=== PATIENT | female | born 1955 | race Caucasian/White ===

== ENCOUNTER 2016-06-16 10:57 | Outpatient (RCR) | payer MEDICARE, MEDICAID ==
[~2016-06-16 10:57] MED LIST: ALBU0.632; ALLP300T; ASPI-586 PO; CARV6.252; ENAL10TA; EZET10TA5; FENO145T2; HCTZ12.5T; IBUP-1779 PO; LANS30CA; NIA500ERT PO; PRAV40TA; SIMV20TA3 PO; SRTR100T; TELM80TA3; TRM50T PO
== END 2016-06-16 11:47 | disposition home or self-care (01) ==
LOC: EDSEX
PROVIDERS: ATTEND Nurse Practitioner Community Health
DX: M51.36 Other intervertebral disc degeneration, lumbar region (principal)

== ENCOUNTER 2016-06-18 10:16 | Outpatient (CLI) | payer MEDICARE, MEDICAID ==
[~2016-06-18] VITALS: Ht 167.6 cm; Wt 133.4 kg
[2016-06-18] MEDS ORDERED: TRIAMCINOLONE ACET (KENALOG-40) 40 MG/ML 1 ML VIAL ONE (10:25)
[2016-06-18] MEDS ORDERED: BUPIVACAINE 0.25% 30 ML (SENSORCAINE) VIAL ONE (10:25)
[2016-06-18 10:37] VITALS: BP 189/90
[2016-06-18 11:29] VITALS: BP 188/99
--- NOTE | 2016-06-18 12:21 | Pain Medicine-Procedure ---
Procedure Pre-Op/Post-Op Diagnosis Diagnosis: Disc disorder with radiculopathy, lumbar Indications for Operation Low back pain Attending Surgeon Urbano Procedure Date of Service: Jun 18, 2016 Procedure: Lumbar Epidural Steroid Injection at the L5-S1 level under Fluoroscopic Guidance Procedure: Patient was identified in the holding area. After risks, benefits, and alternatives were discussed with the patient, informed consent was obtained. Patient was brought to the fluoroscopy suite and placed prone on the procedure room table. A time out was performed. Vital signs were monitored throughout the procedure. The patients low back was prepped and draped in the usual sterile fashion. The patients skin was anesthetized using 2% Lidocaine. A Tuohy needle was inserted and advanced to the L5-S1 epidural space under fluoroscopic guidance using the loss of resistance technique and intermittent projection of fluoroscopy. There was no paresthesia with needle placement. The needle position was confirmed in both the AP and lateral view. After negative aspiration 2ml of contrast was injected under live fluoroscopy which showed good spread of the contrast in the epidural space at the appropriate level, there was no intravascular or subarachnoid spread. Again, after negative aspiration for heme or CSF, 2 ml of 0.25% Bupivicaine, 2ml of preservative free normal saline, and 80mg of Kenalog was injected. The needle was removed and a sterile bandage was placed and the patient was transferred to the recovery area in stable condition. After a brief period of observation, patient was discharged to home with no new neurological deficits and no apparent complications. Complications None SAMINA DE LA CRUZ MD Jun 18, 2016 12:21 pm
== END 2016-06-18 11:35 | disposition home or self-care (01) ==
LOC: CARD 10:16 → EDSEX 10:16 → CARD 11:35
PROVIDERS: ATTEND Pain Medicine Pain Medicine
DX: M51.16 Intervertebral disc disorders with radiculopathy, lumbar region (principal); M47.816 Spondylosis without myelopathy or radiculopathy, lumbar region; E66.9 Obesity, unspecified; Z68.42 Body mass index [BMI] 45.0-49.9, adult; Z79.899 Other long term (current) drug therapy; Z79.84 Long term (current) use of oral hypoglycemic drugs
CPT/HCPCS: 62323; 82962

== ENCOUNTER 2016-07-09 11:46 | Outpatient (CLI) | payer MEDICARE, MEDICAID ==
[~2016-07-09] VITALS: Ht 167.6 cm; Wt 133.4 kg
[2016-07-09] MEDS ORDERED: TRIAMCINOLONE ACET (KENALOG-40) 40 MG/ML 1 ML VIAL ONE (12:01)
[2016-07-09] MEDS ORDERED: BUPIVACAINE 0.25% 30 ML (SENSORCAINE) VIAL ONE (12:01)
[2016-07-09 12:15] VITALS: BP 197/99
[2016-07-09 12:56] VITALS: BP 168/91
--- NOTE | 2016-07-09 14:15 | Pain Medicine-Procedure ---
Procedure Pre-Op/Post-Op Diagnosis Diagnosis: Disc disorder with radiculopathy, lumbar Indications for Operation Low back pain Attending Surgeon Urbano Procedure Date of Service: Jul 09, 2016 Procedure: Lumbar Epidural Steroid Injection at the L5-S1 level under Fluoroscopic Guidance Procedure: Patient was identified in the holding area. After risks, benefits, and alternatives were discussed with the patient, informed consent was obtained. Patient was brought to the fluoroscopy suite and placed prone on the procedure room table. A time out was performed. Vital signs were monitored throughout the procedure. The patients low back was prepped and draped in the usual sterile fashion. The patients skin was anesthetized using 2% Lidocaine. A Tuohy needle was inserted and advanced to the L5-S1 epidural space under fluoroscopic guidance using the loss of resistance technique and intermittent projection of fluoroscopy. There was no paresthesia with needle placement. The needle position was confirmed in both the AP and lateral view. After negative aspiration 2ml of contrast was injected under live fluoroscopy which showed good spread of the contrast in the epidural space at the appropriate level, there was no intravascular or subarachnoid spread. Again, after negative aspiration for heme or CSF, 2 ml of 0.25% Bupivicaine, 2ml of preservative free normal saline, and 80mg of Kenalog was injected. The needle was removed and a sterile bandage was placed and the patient was transferred to the recovery area in stable condition. After a brief period of observation, patient was discharged to home with no new neurological deficits and no apparent complications. Complications None SAMINA DE LA CRUZ MD Jul 09, 2016 2:15 pm
== END 2016-07-09 12:57 | disposition home or self-care (01) ==
LOC: CARD 11:46
PROVIDERS: ATTEND Pain Medicine Pain Medicine
DX: M51.16 Intervertebral disc disorders with radiculopathy, lumbar region (principal); M47.816 Spondylosis without myelopathy or radiculopathy, lumbar region; Z79.899 Other long term (current) drug therapy
CPT/HCPCS: 62323; 82962

== ENCOUNTER 2017-07-07 09:49 | Outpatient (RCR) | payer MEDICARE, MEDICAID | END 2017-07-07 10:36 | disposition home or self-care (01) | PROVIDERS: ATTEND Nurse Practitioner Community Health | DX: M54.5 Low back pain (principal) ==

== ENCOUNTER → 2018-06-28 | Outpatient (CLI) | payer MEDICARE, MEDICAID ==
--- NOTE | 2018-06-28 11:57 | Diagnostic Imaging Report ---
INDICATION: Chronic low back pain. TIME OF EXAM: 11:08 a.m. FINDINGS: AP and lateral views of the lumbar spine were obtained. Curvature is normal. There is grade I/II spondylolisthesis of L5 on S1. There appear to be pars defects at this level. Vertebral body heights are maintained. No acute compression fracture is identified. There is multilevel lumbar spondylosis with variable disc space narrowing and marginal spurring. This is most severe at the L5-S1 level where there is significant disc space narrowing present. IMPRESSION: Spondylolisthesis as well as spondylolysis at L5-S1 with severe degenerative disc disease. No acute bony abnormality is detected. Dictated by: Dictated on workstation # [id number]
== END ==
LOC: RAD 10:58
PROVIDERS: ATTEND Nurse Practitioner Community Health
DX: M43.07 Spondylolysis, lumbosacral region (principal); M51.36 Other intervertebral disc degeneration, lumbar region
CPT/HCPCS: 72100

== ENCOUNTER → 2018-06-29 | Outpatient (CLI) | payer MEDICARE, MEDICAID ==
--- NOTE | 2018-06-29 13:43 | Diagnostic Imaging Report ---
PROCEDURE: MRI lumbar spine. TECHNIQUE: Multiplanar, multisequence MRI of the lumbar spine was performed without contrast. INDICATION: Back pain. COMPARISON: Comparison made with prior examination from 11/09/2013. FINDINGS: There is bilateral spondylolysis at L5 with grade 2 spondylolisthesis of L5 on S1. The alignment is otherwise normal. There is no spondylolysis or spondylolisthesis. No other fractures are identified. Conus medullaris is seen at L1 and is normal in appearance. At T12-L1, there is some broad-based annular bulging and mild facet disease. There is slight effacement of the ventral thecal sac. At L1-2, there is loss of disc height and signal intensity. There is some annular bulging and facet disease. There is mild central spinal stenosis. At L2-3, the disc is normal in height, signal intensity, and morphology. There is some facet disease and thickening of the ligamentum flavum. This contributes to some minimal bilateral neural foraminal encroachment. At L4-5, there is minimal annular bulging as well as some facet disease and thickening of the ligamentum flavum. There is mild central spinal stenosis with slight encroachment upon the lateral recess bilaterally and zxlh-or-sbqpimhs bilateral neural foraminal encroachment. At L4-5, there is minimal annular bulging and facet disease. There is slight effacement of the ventral thecal sac and minimal neural foraminal encroachment. At L5-S1, there broad-based annular bulging with encroachment upon the lateral recess bilaterally. There is moderately severe bilateral neural foraminal encroachment, left greater than right. The abdominal aorta is nonaneurysmal. The visualized kidneys are unremarkable. IMPRESSION: Lumbar spondylosis and degenerative disc disease as detailed above. Dictated by: Dictated on workstation # [id number]
== END ==
LOC: RAD 11:59
PROVIDERS: ATTEND Nurse Practitioner Community Health
DX: M48.07 Spinal stenosis, lumbosacral region (principal); M51.27 Other intervertebral disc displacement, lumbosacral region; M47.816 Spondylosis without myelopathy or radiculopathy, lumbar region; M51.36 Other intervertebral disc degeneration, lumbar region; M43.17 Spondylolisthesis, lumbosacral region
CPT/HCPCS: 72148

== ENCOUNTER 2018-10-18 15:00 | Outpatient (CLI) | payer MEDICARE, MEDICAID ==
[~2018-10-18] VITALS: Ht 167.6 cm; Wt 141.1 kg
[2018-10-18] MEDS ORDERED: SIMV40TA4 PO (15:30)
[2018-10-18] MEDS ORDERED: HYDR12.56 PO (15:30)
[2018-10-18] MEDS ORDERED: SERT100T8 PO (15:30)
[2018-10-18] MEDS ORDERED: DIVA-76 PO (15:30)
[2018-10-18] MEDS ORDERED: ALLO300T2 PO (15:30)
[2018-10-18] MEDS ORDERED: IBUP-1780 PO (15:30)
[2018-10-18] MEDS ORDERED: EXEN2PEN SQ (15:30)
[2018-10-18] MEDS ORDERED: RT-ALBUINH IH (15:30)
[2018-10-18] MEDS ORDERED: METF-397 PO (15:30)
[2018-10-18] MEDS ORDERED: RANI150T90 PO (15:30)
[2018-10-18] MEDS ORDERED: CARV12.53 PO (15:30)
[2018-10-18] MEDS ORDERED: PREG225C PO (15:30)
[2018-10-18] MEDS ORDERED: PRAZ1CAP2 PO (15:30)
[2018-10-18] MEDS ORDERED: TRAZ150T72 PO (15:30)
[2018-10-18] MEDS ORDERED: CYCL10TA9 PO (15:30)
== END 2018-10-18 15:31 | disposition home or self-care (01) ==
LOC: PREOP 15:00
PROVIDERS: ATTEND Surgery
DX: Z01.818 Encounter for other preprocedural examination (principal)

== ENCOUNTER → 2020-07-28 | Outpatient (CLI) | payer MEDICARE, MEDICAID ==
[~2020-07-28] MED LIST changes: +ALLO300T2 PO; +CARV12.53 PO; +CYCL10TA9 PO; +DIVA-76 PO; +EXEN2PEN SQ; +HYDR12.56 PO; +IBUP-1780 PO; +METF-397 PO; +PRAZ1CAP2 PO; +PREG225C PO; +RANI150T90 PO; +RT-ALBUINH IH; +SERT-414 PO; +SIMV20TA26 PO; -SIMV20TA3 PO; +SIMV40TA25 PO; +TRAZ150T72 PO
== END ==
LOC: CARD 08:36
PROVIDERS: ATTEND Internal Medicine Cardiovascular Disease
DX: I51.7 Cardiomegaly (principal); I34.0 Nonrheumatic mitral (valve) insufficiency
CPT/HCPCS: 93306

== ENCOUNTER → 2020-07-29 | Outpatient (CLI) | payer MEDICARE, MEDICAID ==
[~2020-07-29] VITALS: Ht 167 cm; Wt 145.0 kg
[~2020-07-29] MED LIST changes: +CATHETER FLUSH 10 ML SYR IV PRN; +REGADENOSON 0.4 MG/5 ML SYR (LEXISCAN) IV ONE
[2020-07-29 09:11] VITALS: BP 204/116
--- NOTE | 2020-07-30 13:05 | STRESS TEST ---
DATE OF SERVICE: 07/29/2020 RESTING AND POST REGADENOSON TECHNETIUM-99M TETROFOSMIN SPECT CT IMAGING ORDERING PHYSICIAN: Dr. Vasquez. PRIMARY PHYSICIAN: [facility]. CLINICAL DIAGNOSIS: Shortness of breath. Baseline images were carried out after injection of 10.31 mCi of technetium-99m Tetrofosmin. This was followed by 0.4 mg regadenoson and 29.3 mCi of technetium-99m Tetrofosmin for stress imaging. The electrocardiogram shows sinus rhythm at baseline. Some premature ventricular contractions were seen. There was no supraventricular or ventricular tachycardia. Review of images at rest and following stress indicates a small inferoapical perfusion defect that appears transient. Gated images show normal global left ventricular systolic function AND normal regional wall motion. Left ventricular ejection fraction is calculated to be 54%. Left ventricular end diastolic volume is 112 mL. TID is absent (1.08). CONCLUSIONS: 1. This study suggests a small amount of inferoapical ischemia. 2. Normal regional wall motion. 3. Normal global left ventricular systolic function with a calculated ejection fraction 54%. Job ID: [id number] DocumentID: [id number] Dictated Date: 07/30/2020 08:43:53 Direct Support Professional Date: 07/30/2020 13:03:44 Dictated By: MATILDA VASQUEZ MD, MA, FACP, FACC,
== END ==
LOC: CARD 08:00
PROVIDERS: ATTEND Internal Medicine Cardiovascular Disease
DX: R06.09 Other forms of dyspnea (principal); R06.02 Shortness of breath
CPT/HCPCS: 78452; 93017; A9502

== ENCOUNTER 2020-11-10 06:28 | Outpatient (CLI) | payer MEDICARE, MEDICAID ==
[~2020-11-10] VITALS: Ht 167.6 cm; Wt 147.8 kg
[~2020-11-10 06:28] MED LIST changes: -CATHETER FLUSH 10 ML SYR IV PRN; -REGADENOSON 0.4 MG/5 ML SYR (LEXISCAN) IV ONE
[2020-11-10] MEDS ORDERED: CETI10TA17 PO (14:39)
[2020-11-10] MEDS ORDERED: ASPI-999 PO (14:39)
[2020-11-10] MEDS ORDERED: DICY20TA10 PO (14:39)
[2020-11-10] MEDS ORDERED: FLUT9.9S NS (14:39)
== END 2020-11-10 14:52 | disposition home or self-care (01) ==
LOC: PREOP 06:28
PROVIDERS: ATTEND Orthopaedic Surgery
DX: Z01.818 Encounter for other preprocedural examination (principal)

== ENCOUNTER 2020-11-19 08:53 | Day surgery (SDC) | payer MEDICARE, MEDICAID ==
[~2020-11-19] VITALS: Ht 167.6 cm; Wt 147.8 kg
[2020-11-19] VITALS (11 sets, daily range): BP systolic 118–148; BP diastolic 64–94
[~2020-11-19 08:53] MED LIST changes: +ASPI-999 PO; +CETI10TA17 PO; +DICY20TA10 PO; +FLUT9.9S NS
[2020-11-19] MEDS ORDERED: LACTATED RINGERS 1,000 ML IV PRN (09:00)
[2020-11-19] MEDS ORDERED: ceFAZolin INJECTION 1,000 MG in WATER (STERILE) FOR INJECTION 10 ML IV ONE (09:00)
--- NOTE | 2020-11-19 09:18 | Progress Note-Pre Operative ---
Pre-Operative Progress Note H&P Reviewed The H&P was reviewed, patient examined and no changes noted. Date Seen by Provider: Nov 19, 2020 Time Seen by Provider: :18 Date H&P Reviewed: Nov 19, 2020 Time H&P Reviewed: 09:18 Pre-Operative Diagnosis: right knee medial meniscus tear and chondromalacia TEVIN GILLIAM MD Nov 19, 2020 09:18
--- NOTE | 2020-11-19 09:19 | Progress Note-Post Operative ---
Post-Operative Progess Note Surgeon (s)/Thresher Broomcorn (s) Surgeon TEVIN GILLIAM MD Thresher Broomcorn: Basil Almaguer Pre-Operative Diagnosis right knee medial meniscus tear and chondromalacia Post-Operative Diagnosis right knee medial meniscus tear and chondromalacia of the medial femoral condyle, medial tibial plateau and patella Procedure & Operative Findings Date of Procedure 11/19/20 Procedure Performed/Findings right knee arthroscopic partial medial meniscectomy and chondroplasty of of the medial femoral condyle, medial tibial plateau and patella Anesthesia Type GETA Estimated Blood Loss Estimated blood loss (mL): minimal Specimens/Packing Specimens Removed none Packing: none TEVIN GILLIAM MD Nov 19, 2020 09:19
[2020-11-19] MEDS ORDERED: MIDAZOLAM 2 MG/2 ML (VERSED) VIAL ONE (09:32)
[2020-11-19] MEDS ORDERED: LIDOCAINE PF 2% 5 ML (XYLOCAINE) VIAL ONE (09:32)
[2020-11-19] MEDS ORDERED: SEVOFLURANE (ULTANE) 15 ML INHAL SOLN ONE (09:32)
[2020-11-19] MEDS ORDERED: ONDANSETRON 4 MG/2 ML (SDV) Z0FRAN ONE (09:32)
[2020-11-19] MEDS ORDERED: proPOfol 200 MG/20 ML (DIPRIVAN) VIAL IV ONE (09:32)
[2020-11-19] MEDS ORDERED: fentaNYL INJ 100 MCG/2 ML AMP ONE (09:32)
[2020-11-19] MEDS ORDERED: morphine PF (DURAMORPH) 10 MG/10 ML AMP ONE (09:39)
[2020-11-19] MEDS ORDERED: BUPIVACAINE 0.25% 30 ML (SENSORCAINE) VIAL ONE (09:40)
[2020-11-19] MEDS ORDERED: HYDROmorphone 2 MG/ML VIAL (DILAUDID) IV ONE (11:45)
[2020-11-19] MEDS ORDERED: ONDANSETRON 4 MG/2 ML (SDV) Z0FRAN IVP PRN (11:45)
--- NOTE | 2020-11-19 13:59 | Physical Therapy Ortho Eval ---
PT Orthopedic Evaluation Type of Surgery Knee Scope Prior Level of Function Current Living Status: Significant Other Locomotion (Upon Admit): Independent Established Durable Medical Eq: Straight Cane, Crutches Subjective Subjective Patient sitting on end of bed upon PT arrival. Reports he has walked around the room a little bit and has to use the bathroom. Reports he has a cane and crutches at home, but prefers to use the cane. Politely refuses use of crutches for training. Entry Into Home: Stairs With Railing Steps Into Home: 4 Steps Inside Home: 0 Steps Accessories: Railing Present Objective Objective Patient ambulates 50 feet with cane in right UE per his insistence, with SBA and verbal cues for proper progression. Patient ascends/descends 1 step x 4 with CGA and verbal cues for safety, progression, proper gait pattern. Patient educated on and dispensed written HEP. Motor Control Motor Control: Motor Control WNL ROM ROM: WFL, except focal deficit Strength Strength: WFL Transfer SCALE: Activities may be completed with or without assistive devices. 2-Efdrekotog-zpqvgoj completes the activity by him/herself with no assistance from a helper. 5-Set-up or Clean-up Assistance-helper sets up or cleans up; patient completes activity. [place] assists only prior to or following the activity. 4-Supervision or Touching Assistance-helper provides verbal cues and/or touching/steadying and/or contact guard assistance as patient completes activity. Assistance may be provided throughout the activity or intermittently. 3-Partial/Moderate Assistance-helper does LESS THAN HALF the effort. [place] lifts, holds or supports trunk or limbs, but provides less than half the effort. 2-Substantial/Maximal Assistance-helper does MORE THAN HALF the effort. [place] lifts or holds trunk or limbs and provides more than half the effort. 6-Ojehrxwff-cktpuu does ALL the effort. Patient does none of the effort to complete the activity. Or, the assistance of 2 or more helpers is required for the patient to complete the activity. If activity was not attempted, code reason: 7-Patient Refused. 9-Not Applicable-not attempted and the patient did not perform the activity before the current illness, exacerbation or injury. 10-Not Attempted due to Environmental Limitations-(lack of equipment, weather restraints, etc.). 88-Not Attempted due to Medical Conditions or Safety Concerns. Transfers (B, C, W/C) (QC): 5 Gait Gait Assistive Device: Cane Single Point Right Lower Extremity: Right Weight Bearing Status RLE: Weight Bearing/Tolerated Left Lower Extremity: Left Weight Bearing Status LLE: Full Weight Bearing Gait (QC): 5 Distance (QC): 5=533-96 ft Distance: 50 Wheelchair Wheelchair (QC): 88 Wheelchair Distance (QC): 0=does not occure Treatment Rendered Treatment: Gait Train, Issued Written HEP Exercise Instruction: Quad Sets, Straight Leg Raise, Heel Slides, Other Assessment/Goals Goal Time Frame: 1 Visit Understands HEP: Yes Safe Ambulation: Yes Plan Treatment Plan: Discharge Time Time In: 1310 Time Out: 1335 Total Billed Treatment Time: 25 Billed Treatment Time Smooth dixon, gait ARIES Moreno PT Nov 19, 2020 13:59
--- NOTE | 2020-11-19 15:36 | Anesthesia-General Post-Op ---
General Patient Condition Mental Status/LOC: Same as Preop Cardiovascular: Satisfactory Nausea/Vomiting: Absent Respiratory: Satisfactory Pain: Controlled Complications: Absent Post Op Complications Complications None Follow Up Care/Instructions Patient Instructions None needed. Anesthesia/Patient Condition Patient Condition Patient is doing well, no complaints, stable vital signs, no apparent adverse anesthesia problems. No complications reported per nursing. D/C home per [facility] [place] [facility] Criteria: Yes GISELLA SYLVESTER CRNA Nov 19, 2020 15:36
--- NOTE | 2020-11-19 16:40 | OPERATIVE REPORT ---
DATE OF SERVICE: 11/19/2020 PREOPERATIVE DIAGNOSES: 1. Right knee medial meniscus tear. 2. Right knee chondromalacia of the medial femoral condyle. 3. Right knee chondromalacia of the patella. POSTOPERATIVE DIAGNOSES: 1. Right knee medial meniscus tear. 2. Right knee lateral meniscus tear. 3. Right knee chondromalacia of the medial femoral condyle. 4. Right knee chondromalacia of the medial tibial plateau. 5. Right knee chondromalacia of the patella. PROCEDURES PERFORMED: 1. Right knee arthroscopic partial medial meniscectomy. 2. Right knee arthroscopic partial lateral meniscectomy. 3. Right knee arthroscopic chondroplasty of the medial femoral condyle. 4. Right knee arthroscopic chondroplasty of the medial tibial plateau. 5. Right knee arthroscopic chondroplasty of the patella. SURGEON: Mickey Gilliam MD. SAP INTEGRATION ARCHITECT: Basil Almaguer, who assisted throughout the procedure and closed the incisions. ANESTHESIA: General endotracheal by Rashi Guillaume CRNA. TOURNIQUET TIME: Not applicable. ESTIMATED BLOOD LOSS: Minimal. DRAINS: None. COMPLICATIONS: None. POSTOPERATIVE PLAN: Routine arthroscopy protocol. The patient was transferred to the recovery room awake and stable condition. STATEMENT OF MEDICAL NECESSITY: The patient is a 64-year-old gentleman with complaints of right medial knee pain, catching, locking and swelling. He was tender along his medial joint line, had pain medially with Jewel's. He also had patellofemoral crepitus and pain with patellar loading. He tried rest, activity modifications, and anti-inflammatories without relief. Due to functional impairment and failure to improve with conservative measures, the patient elected to proceed with surgical intervention. Examination under anesthesia revealed range of motion of 0/3/120 with negative Flex, negative anterior and posterior drawer. No varus valgus laxity, negative pivot shift. Arthroscopic findings of the patella demonstrated grade II chondral flaps inferiorly in a 10 x 10 area. Trochlea demonstrated no significant chondral abnormalities. Medial and lateral gutters were clear. The ACL and PCL were intact. The lateral compartment demonstrated a tear of the posterior horn and body of the meniscus involving approximately 1/3 of the posterior horn. This was a horizontal cleavage in nature. The medial compartment demonstrated grade II chondral flaps of the central portion of the femoral condyle and tibial plateau and adjacent 10 x 10 areas with a complex tear of the posterior horn and body of the meniscus involving approximately 1/2 posterior horn and body. DESCRIPTION OF PROCEDURE: After risks and benefits of procedure were discussed and questions were answered, an informed consent was signed and placed on chart, the operative site was confirmed in the preoperative holding area initialed by the surgeon. The patient was then transferred to the operating room and after adequate levels of general endotracheal anesthetic were obtained, a timeout was called, confirming the operative site, examination under anesthesia was performed with the above findings noted. The right lower extremity was prepped and draped in the usual sterile fashion. The knee joint was injected with 60 mL of fluid. Standard inferolateral portal was placed for the arthroscope. Under direct visualization, inferior medial port was created. The menisci and cruciates were carefully probed with the above findings noted. The unstable chondral flaps on the patella were debrided with a shaver back to a stable edge. Scope was redirected into the medial compartment, where the unstable chondral flaps in the medial tibial plateau and medial femoral condyle were debrided with a shaver back to a stable edge. The unstable medial meniscus tear was debrided with a biter and a shaver back to a stable edge. This was carefully probed with no further tearing or instability noted. Scope was redirected into the lateral compartment. The lateral meniscus tear was debrided with a biter and a shaver back to a stable edge. This was carefully probed with no further tearing or instability noted. The knee was copiously irrigated. The portal sites were closed with 4-0 nylon in a simple interrupted fashion. Knee joint was injected with Duramorph. The portal sites were infiltrated with plain Marcaine. A soft dressing was applied. The patient was transferred to the recovery room awake and in stable condition. Job ID: [id number] DocumentID: [id number] Dictated Date: 11/19/2020 11:25:50 Chemicals Fermentation Operator Date: 11/19/2020 16:38:49 Dictated By: MICKEY GILLIAM MD
== END 2020-11-19 13:30 ==
LOC: SDC 08:53
PROVIDERS: ATTEND Orthopaedic Surgery
DX: S83.241A Other tear of medial meniscus, current injury, right knee, initial encounter (principal); M22.41 Chondromalacia patellae, right knee; S83.281A Other tear of lateral meniscus, current injury, right knee, initial encounter; I10 Essential (primary) hypertension; G47.33 Obstructive sleep apnea (adult) (pediatric); J44.9 Chronic obstructive pulmonary disease, unspecified; K21.9 Gastro-esophageal reflux disease without esophagitis; M19.90 Unspecified osteoarthritis, unspecified site; M10.9 Gout, unspecified; E78.5 Hyperlipidemia, unspecified; E11.9 Type 2 diabetes mellitus without complications; E66.9 Obesity, unspecified; Z68.43 Body mass index [BMI] 50.0-59.9, adult; Z79.899 Other long term (current) drug therapy; Z79.82 Long term (current) use of aspirin; Z79.51 Long term (current) use of inhaled steroids; Z79.1 Long term (current) use of non-steroidal anti-inflammatories (NSAID); Z79.84 Long term (current) use of oral hypoglycemic drugs; Z87.891 Personal history of nicotine dependence
CPT/HCPCS: 82947; 87081

== ENCOUNTER 2021-10-20 11:00 | Day surgery (SDC) | payer MEDICARE, MEDICAID ==
[~2021-10-20] VITALS: Ht 167.6 cm; Wt 150.7 kg
[2021-10-20] VITALS (8 sets, daily range): BP systolic 121–148; BP diastolic 63–87
[~2021-10-20 11:00] MED LIST changes: +CYCL10TA25 PO; -CYCL10TA9 PO; +DICY20TA PO; -DICY20TA10 PO
[2021-10-20] MEDS ORDERED: NS IV 1000 ML 1,000 ML IV SCH ×3 (11:15→14:00)
[2021-10-20] MEDS ORDERED: LIDOCAINE 1% INJ 20 ML VIAL ONE (11:19)
[2021-10-20] MEDS ORDERED: HEParin (CATH LAB) 1,000 ML IV ONE (11:19)
[2021-10-20] MEDS ORDERED: NS IV 1000 ML 1,000 ML ONE (11:19)
[2021-10-20 12:15] LABS: HEMATOCRIT 36 % (40-54); MEAN CORPUSCULAR HEMOGLOBIN 31 pg (25-34); MEAN CORPUSCULAR HGB CONC 34 g/dL (32-36); MEAN CORPUSCULAR VOLUME 91 fL (80-99); MEAN PLATELET VOLUME 9.6 fL (9.0-12.2); PLATELET COUNT 277 10^3/uL (130-400); WHITE BLOOD COUNT 7.8 10^3/uL (4.3-11.0)
[2021-10-20 12:28] LABS: PROTHROMBIN TIME PATIENT 13.7 SEC (12.2-14.7)
[2021-10-20 12:34] LABS: ALBUMIN 4.4 GM/DL (3.2-4.5); BILIRUBIN,TOTAL 0.2 MG/DL (0.1-1.0); CALCIUM 9.3 MG/DL (8.5-10.1); CREATININE SERUM 0.82 MG/DL (0.60-1.30); POTASSIUM 4.6 MMOL/L (3.6-5.0); TOTAL PROTEIN 6.9 GM/DL (6.4-8.2)
[2021-10-20] MEDS ORDERED: METH-336 PO (12:34)
[2021-10-20] MEDS ORDERED: TRAZ300T3 PO (12:42)
[2021-10-20] MEDS ORDERED: LISI10TA25 PO (12:42)
[2021-10-20] MEDS ORDERED: PRAZ2CAP2 PO (12:42)
[2021-10-20] MEDS ORDERED: MIDAZOLAM 5 MG/5 ML (VERSED) VIAL ONE (12:44)
[2021-10-20] MEDS ORDERED: fentaNYL INJ 100 MCG/2 ML AMP ONE (12:44)
[2021-10-20] MEDS ORDERED: diphenhydrAMINE 50 MG/ML INJ (BENADRYL) ONE (13:15)
[2021-10-20] MEDS ORDERED: PATIENT MAY USE OWN MEDS, ALL PO SCH (14:00)
--- NOTE | 2021-10-20 14:00 | Cardiac Procedure Note-CS/ASA ---
Pre-Procedure Note Pre-Op Procedure Note H&P Reviewed The H&P was reviewed, patient examined and no changes noted. Date H&P Reviewed: Oct 20, 2021 Time H&P Reviewed: 12:30 Conscious Sedation Pre-Proced Time 12:30 ASA Score 3 For ASA 3 and 4: Consider anesthesia and medical clearance. Also, for patients with a history of failed moderate sedation consider anesthesia. Airway Lungs Heart ASA score ASA 1: a normal healthy patient ASA 2: a patient with a mild systemic disease (mid diabetes, controlled hypertension, obesity ASA 3: a patient with a severe systemic disease that limits activity (angina, COPD, prior Myocardial infarction) ASA 4: a patient with an incapacitating disease that is a constant threat to life (CHF, renal failure) ASA 5: a moribund patient not expected to survive 24 hrs. (ruptured aneurysm) ASA 6: a declared brain- patient whose organs are being harvested. For emergent operations, add the letter E after the classification Mallampati Classification Grade 3 Sedation Plan Analgesia, Amnesia, Plan communicated to team members The patient is an appropriate candidate to undergo the planned procedure, sedation, and anesthesia. The patient immediately re-assessed prior to indication. MATILDA LOPEZ MD FACP FAC CCDS Oct 20, 2021 14:00
--- NOTE | 2021-10-20 14:04 | Discharge Inst-Cardiology ---
Discharge Inst-Cardiac Discharge Medications Continued Medications: Albuterol Sulfate (Proair Hfa) 1 Puff Puff 2 PUFF IH Q4H PRN for WHEEZING, PUFF 1 PUFF = 90 MCG Allopurinol (Allopurinol) 300 Mg Tablet 300 MG PO DAILY, TAB Aspirin (Aspirin) 81 Mg Tab.chew 81 MG PO DAILY, TAB Carvedilol (Carvedilol) 12.5 Mg Tablet 12.5 MG PO BID, TAB Cetirizine HCl (Cetirizine HCl) 10 Mg Tablet 10 MG PO DAILY, TAB Cyclobenzaprine HCl (Cyclobenzaprine HCl) 10 Mg Tablet 10 MG PO HS, TAB Dicyclomine HCl (Dicyclomine HCl) 20 Mg Tablet 20 MG PO TIDAC, TAB Exenatide Microspheres (Bydureon Pen) 2 Mg/0.65 Ml Pen.injctr 2 MG SQ WEEK, VIAL Fluticasone Propionate (Flonase Allergy Relief) 9.9 Ml [place].susp 1 SPRAY NS DAILY, #1 EACH 1 SPRAY EACH NARE DAILY Hydrochlorothiazide (Hydrochlorothiazide) 12.5 Mg Tablet 12.5 MG PO DAILY, TAB Lisinopril (Lisinopril) 10 Mg Tablet 10 MG PO DAILY, TAB Methylcellulose (Fiber) 500 Mg Tablet 500 MG PO BID, TAB Prazosin HCl (Prazosin HCl) 1 Mg Capsule 2 MG PO DAILY, CAP Prazosin HCl (Prazosin HCl) 2 Mg Capsule 6 MG PO HS, CAP Pregabalin (Lyrica) 225 Mg Capsule 225 MG PO BID, CAP Sertraline HCl (Sertraline HCl) 100 Mg Tablet 150 MG PO DAILY, TAB Simvastatin (Simvastatin) 40 Mg Tablet 40 MG PO HS, TAB Trazodone HCl (Trazodone HCl) 300 Mg Tablet 300 MG PO DAILY, TAB Discontinued Medications: Ibuprofen (Ibuprofen) 800 Mg Tablet 800 MG PO TID, TAB Metformin HCl (Metformin HCl) 500 Mg Tablet 1000 MG PO BID, TAB take 2 (500MG) TABS Patient Instructions Patient Instructions: Hold METFORMIN until the am of 10/23/21, then resume previous home dose Hold Ibuprofen today. Then 800 mg tid prn only MATILDA LOPEZ MD [facility] Oct 20, 2021 14:04
--- NOTE | 2021-10-20 14:05 | Discharge Inst-Post CATH ---
Discharge Inst-CATH/EP Post Cardiac Cath/EP D/C Inst Follow Up/Plan F/u at Dr Vasquez's office in 2 weeks ACTIVITY * Go Home directly and rest. * Limit activity of the leg (or wrist if it was used) for 7 days including aerobics, swimming, jogging, bicycling, etc. * Restrict stair-climbing for 7 days if possible, if not, climb up with your non-cath leg, then bring together on the same step. * Avoid lifting, pushing, pulling or excessive movement of the affected extremity for 7 days. * Customary sexual activity may be resumed after 2 days-use caution not to use a position that strains or causes pain to the affected extremity. * No driving for 24 hours. * NO SMOKING. * Avoid straining for bowel movements for 7 days. * Gentle walking on level ground is allowed. * Returning to work will depend on the type of procedure and the results. Your doctor will discuss this with you. CALL YOUR DOCTOR FOR ANY OF THE FOLLOWING: *If bleeding from the puncture site occurs- Apply gentle pressure to site with clean cloth and call your doctor or EMS. * If a knot or lump forms under the skin, increases in size, or causes pain. * If bruising appears to be worsening or moving further down your leg instead of disappearing. * Temperature above 101 F. CARE OF YOUR GROIN INCISION; * Bruising or purple discoloration of the skin near the puncture site is common. * You may shower only, no bathtub bathing for 5 days. Be careful to avoid slipping as your leg may feel stiff. * If a closure device was used on your femoral artery, please see the attached guide regarding care of the device and your leg. * Leave dressing on FOR 24 hours. CARE OF YOUR WRIST INCISION; * Bruising or purple discoloration of the skin near the puncture site is common. * You may shower. * DO NOT submerge wrist. * Leave dressing on FOR 24 hours. MATILDA VASQUEZ MD [facility] CCDS Oct 20, 2021 14:05
--- NOTE | 2021-10-20 15:25 | CARDIAC CATHETERIZATION ---
DATE OF SERVICE: 10/20/2021 CARDIAC CATHETERIZATION REPORT The patient is a 65-year-old gentleman who has been experiencing shortness of breath and chest discomfort. A myocardial perfusion imaging carried out last year had shown inferoapical ischemia. At that time, he has opted for conservative management, he has had recurrent symptoms. Cardiac catheterization was carried out today after he provided an informed consent. DESCRIPTION OF PROCEDURE: He was brought to the cardiac catheterization laboratory in a fasting state. Right groin was prepared and draped in the usual sterile fashion. Lidocaine 1% was used for local anesthesia. Modified Seldinger technique was used to advance a 5-[place] sheath in the right femoral artery, 5-[place] JL4 catheter was used for left coronary angiography, 5[place] JR4 catheter for right coronary angiography, 5[place] pigtail catheter was used for left heart catheterization and left ventricular angiography. Angiography of the right femoral artery was carried out through the sheath. Mynx was used to achieve hemostasis. He tolerated the procedure well. HEMODYNAMICS: Left ventricular end-diastolic pressure following coronary angiography was 2 mmHg. There is no significant pressure gradient on pullback across the aortic valve. Ascending aortic pressure was 109/66 with a mean 87 mmHg. LEFT VENTRICULAR ANGIOGRAPHY: Left ventricular angiography was carried out in the right anterior oblique projection. Global left ventricular systolic function is well preserved. Left ventricular ejection fraction is estimated to be 50% to 55%. CORONARY ANGIOGRAPHY: Left main coronary artery, left anterior descending artery, left circumflex artery, right coronary artery do not exhibit significant obstructive disease. Right coronary artery is dominant. CONCLUSIONS: 1. No angiographically significant coronary artery disease. 2. Normal global left ventricular systolic function with ejection fraction of 50 to 55%. 3. Low normal left ventricular end-diastolic pressure. DISCUSSION AND RECOMMENDATIONS: Based on results of the study, it appears appropriate to continue a conservative approach. Risk factor modification has been reviewed. Outpatient followup is advised. Job ID: [id number] DocumentID: [id number] Dictated Date: 10/20/2021 13:34:34 Stock Turner Date: 10/20/2021 15:25:01 Dictated By: MATILDA LOPEZ MD, MA, FACP, FACC,
== END 2021-10-20 16:35 | disposition home or self-care (01) ==
LOC: CATH 11:00 → SDC 14:15 → CATH 16:35
PROVIDERS: ATTEND Internal Medicine Cardiovascular Disease
DX: R07.89 Other chest pain (principal); I10 Essential (primary) hypertension; J44.9 Chronic obstructive pulmonary disease, unspecified; G47.33 Obstructive sleep apnea (adult) (pediatric); I65.23 Occlusion and stenosis of bilateral carotid arteries; E78.2 Mixed hyperlipidemia; R73.03 Prediabetes; E66.09 Other obesity due to excess calories; Z68.43 Body mass index [BMI] 50.0-59.9, adult; Z87.891 Personal history of nicotine dependence; Z79.82 Long term (current) use of aspirin; Z79.899 Other long term (current) drug therapy; Z79.84 Long term (current) use of oral hypoglycemic drugs
CPT/HCPCS: 80053; 80061; 85027; 85610; 85730; 87081; 93005; 93458; C1760; C1894; 36415

== ENCOUNTER → 2022-01-14 | Outpatient (CLI) | payer MEDICARE, MEDICAID ==
[~2022-01-14] VITALS: Ht 167.7 cm; Wt 150.7 kg
[~2022-01-14] MED LIST changes: +LISI10TA25 PO; +METH-336 PO; +OMEP20CA18 PO; +PRAZ2CAP2 PO; +TRAZ300T3 PO
[2022-01-14 09:40] LABS: BASOPHILS # (AUTO) 0.1 10^3/uL (0.0-0.1); BASOPHILS % (AUTO) 1 % (0-10); EOSINOPHILS # (AUTO) 0.1 10^3/uL (0.0-0.3); EOSINOPHILS % (AUTO) 1 % (0-10); HEMATOCRIT 36 % (40-54); HEMOGLOBIN 11.9 g/dL (13.3-17.7); LYMPHOCYTES # (AUTO) 1.9 10^3/uL (1.0-4.0); LYMPHOCYTES % (AUTO) 21 % (12-44); MEAN CORPUSCULAR HEMOGLOBIN 30 pg (25-34); MEAN CORPUSCULAR HGB CONC 33 g/dL (32-36); MEAN CORPUSCULAR VOLUME 93 fL (80-99); MEAN PLATELET VOLUME 9.6 fL (9.0-12.2); MONOCYTES # (AUTO) 0.6 10^3/uL (0.0-1.0); MONOCYTES % (AUTO) 7 % (0-12); NEUTROPHILS # (AUTO) 6.1 10^3/uL (1.8-7.8); NEUTROPHILS % (AUTO) 69 % (42-75); PLATELET COUNT 260 10^3/uL (130-400); WHITE BLOOD COUNT 8.8 10^3/uL (4.3-11.0)
[2022-01-14 09:55] LABS: ALBUMIN 4.1 GM/DL (3.2-4.5); BILIRUBIN,TOTAL 0.2 MG/DL (0.1-1.0); CALCIUM 9.1 MG/DL (8.5-10.1); CREATININE SERUM 0.82 MG/DL (0.60-1.30); POTASSIUM 4.5 MMOL/L (3.6-5.0)
--- NOTE | 2022-01-14 09:58 | Physical Therapy Pre-Op Eval ---
PT Pre-Surgical Assessment Type of Surgery Type of Surgery: right TKR Prior Level of Function Current Living Status: Spouse Locomotion (Upon Admit): Straight Cane PLOF DME: Straight Cane Subjective Home: Single Level Current Living Status: Spouse Entry Into Home: Stairs With Railing Steps Into Home: 4 Steps Accessories: Railing Present Motor Control Motor Control: Motor Control WNL ROM ROM: WFL, except focal deficit Strength Strength: WFL Transfers Transfers (B, C, W/C) (FIM): 6 Gait Gait (FIM): 6 Gait Distance (FIM): 3 Distance: 150' Gait Assistive Device: Cane Single Point Right Lower Extremity: Right Weight Bearing/Tolerated Left Lower Extremity: Left Full Weight Bearing Treatment Rendered Treatment: Patient instructed in assistive device, supported ambulation. Patient instructed in and given written program of ROM and strengthening exercis es to be preformed post-op. Patient instructed in movement precautions where applicable. Patient demonstrates understandings of post-operative therapy protocol including gait pattern and exercise program. Pre-operative instruction completed; await physical therapy orders after surgery. Treatment Goal Met: Yes Assessment Goals Acheived: I Ambulation w/ FWW, Understands P-op Precaut, I Post-op Exercises Charges/GCodes Time In: 930 Time Out: 943 Total Billed Treatment Time: 13 Total Billed Treatment 1 visit Educ 13 min LUCIA HIGH PT Jan 14, 2022 09:58
[2022-01-14 10:00] LABS: PROTHROMBIN TIME PATIENT 13.8 SEC (12.2-14.7)
[2022-01-14 10:04] VITALS: BP 145/76
--- NOTE | 2022-01-14 10:05 | Diagnostic Imaging Report ---
Indication: Degenerative joint disease, preop knee arthroplasty PA and lateral chest Heart and mediastinum are normal. Lungs are clear. There are no effusions or pneumothoraces. IMPRESSION: No acute abnormalities in the chest Dictated by: Dictated on workstation # [id number]
[2022-01-14 10:29] LABS: ERYTHROCYTE SEDIMENTATION RATE 34 MM/HR (0-30)
[2022-01-14 11:08] LABS: BILIRUBIN,URINE NEGATIVE (NEGATIVE); CLARITY,URINE CLEAR; COLOR,URINE YELLOW; GLUCOSE, URINE (UA) NEGATIVE (NEGATIVE); KETONES,URINE NEGATIVE (NEGATIVE); LEUKOCYTE ESTERASE ,URINE NEGATIVE (NEGATIVE); NITRITE,URINE NEGATIVE (NEGATIVE); PROTEIN,URINE NEGATIVE (NEGATIVE)
[2022-01-14 11:20] LABS: BACTERIA,URINE NEGATIVE /HPF
== END ==
LOC: PREOP 05:33
PROVIDERS: ATTEND Orthopaedic Surgery
DX: Z01.818 Encounter for other preprocedural examination (principal); M17.11 Unilateral primary osteoarthritis, right knee
CPT/HCPCS: 36415; 71046; 80053; 81000; 82308; 85025; 85610; 85652; 86850; 86900; 86901; 87081

== ENCOUNTER 2022-01-20 06:02 | Inpatient (IN) | payer MEDICARE, MEDICAID ==
--- NOTE | 2022-01-14 11:54 | HISTORY AND PHYSICAL ---
DATE OF SERVICE: ADMISSION HISTORY AND PHYSICAL This will be for inpatient admission on 01/20/2022 for right total knee arthroplasty. The patient will require regular inpatient admission due to comorbidities, need for physical therapy and pain management. HISTORY OF PRESENT ILLNESS: The patient is a 66-year-old gentleman with complaints of progressively worsening right knee pain. He has undergone treatment with arthroscopy and injections. He reports progressive loss of function. Radiographs reveal severe medial and patellofemoral arthrosis. The patient ambulates with a cane due to the pain. Due to progressive symptoms and failure to improve with conservative measures, the patient elected to proceed with surgical intervention. REVIEW OF SYSTEMS: No chest pain, no shortness of breath, no dysuria. PAST MEDICAL HISTORY: Anxiety disorder, back pain, constipation, coronary artery disease, reflux, hyperlipidemia, hypertension, osteoarthritis, sleep apnea, gout, alcoholism, depression and PTSD, prediabetes. PAST SURGICAL HISTORY: Colonoscopy, right knee arthroscopy. SOCIAL HISTORY: The patient reports alcohol use and tobacco use. ALLERGIES: NIACIN, FENOFIBRATE, FISH OIL, PENICILLIN and CODEINE. MEDICATIONS: Bydureon, Lyrica, metformin, prazosin, ProAir inhaler, sertraline, simvastatin, trazodone, allopurinol, aspirin, carvedilol, cyclobenzaprine, dicyclomine, hydrochlorothiazide, ibuprofen. FAMILY HISTORY: Noncontributory. PHYSICAL EXAMINATION: GENERAL: The patient is well-developed, well-nourished, in no acute distress. HEENT: Normocephalic, atraumatic. Pupils are equal, round, reactive to light. Oropharynx is clear. NECK: Supple, with no lymphadenopathy. LUNGS: Clear to auscultation bilaterally. HEART: Regular rate and rhythm. ABDOMEN: Soft, nontender, nondistended. EXTREMITIES: The right lower extremity demonstrates varus alignment. He has patellofemoral crepitus. He has tenderness along the medial femoral condyle. Range of motion is 0/3/120. There is no varus valgus laxity. Negative anterior and posterior drawer. He ambulates with a cane. IMPRESSION: Severe right knee osteoarthritis. PLAN: Right total knee arthroplasty. The risks, benefits, options, ramifications and recovery have been discussed at length with the patient. He understands and wishes to proceed. Job ID: [id number] DocumentID: [id number] Dictated Date: 01/14/2022 09:40:59 Needle Felt Making Machine Operator Date: 01/14/2022 11:54:10 Dictated By: TEVIN GILLIAM MD
[2022-01-20] VITALS (13 sets, daily range): BP systolic 128–223; BP diastolic 67–117
[~2022-01-20] VITALS: Ht 167.7 cm; Wt 150.7 kg
[2022-01-20] MEDS ORDERED: CEFUROXIME INJECTION 1,500 MG in NS (IVPB) 50 ML IV ONE (06:15)
[2022-01-20] MEDS: LACTATED RINGERS 1,000 ML IV PRN ×2 (06:45→08:15)
[2022-01-20] MEDS ORDERED: MIDAZOLAM 2 MG/2 ML (VERSED) VIAL ONE (06:56)
[2022-01-20] MEDS ORDERED: fentaNYL INJ 100 MCG/2 ML AMP ONE (06:56)
[2022-01-20] MEDS ORDERED: ROPIVACAINE 5MG/ML 30ML VIAL ONE (06:56)
[2022-01-20] MEDS ORDERED: LIDOCAINE PF 2% 5 ML (XYLOCAINE) VIAL ONE (06:56)
[2022-01-20] MEDS ORDERED: ONDANSETRON 4 MG/2 ML (SDV) Z0FRAN IVP PRN ×2 (07:30→09:45)
[2022-01-20] MEDS ORDERED: diphenhydrAMINE 50 MG/ML INJ (BENADRYL) IVP PRN (07:30)
[2022-01-20] MEDS ORDERED: morphine PCA 100 MG/100 ML BAG IV PRN (07:30)
--- NOTE | 2022-01-20 07:34 | Progress Note-Pre Operative ---
Pre-Operative Progress Note Date of Available H&P: Jan 14, 2022 Date H&P Reviewed: Jan 20, 2022 Time H&P Reviewed: 07:11 Changes from last HP none Pre-Operative Diagnosis: right knee primary osteoarthritis TEVIN GILLIAM MD Jan 20, 2022 07:34
--- NOTE | 2022-01-20 07:35 | Progress Note-Post Operative ---
Post-Operative Progess Note Surgeon (s)/Student Accounts Manager (s) Surgeon TEVIN GILLIAM MD Student Accounts Manager: Basil Gayle Pre-Operative Diagnosis right knee primary osteoarthritis Post-Operative Diagnosis right knee primary osteoarthritis Procedure & Operative Findings Date of Procedure 01/20/22 Procedure Performed/Findings right total knee arthroplasty Anesthesia Type GETA Estimated Blood Loss Estimated blood loss (mL): minimal Specimens/Packing Specimens Removed none Packing: none TEVIN GILLIAM MD Jan 20, 2022 07:35
--- NOTE | 2022-01-20 07:37 | D/C HH Face to Face Order ---
D/C Face to Face Orders Reconcile Patient Problems Problems Reviewed?: Yes Instructions for Patient Via [facility] [employer], Patient Instructions/FollowUp: three weeks Physician to follow Patient: three weeks Discharge Diet for Home: Regular Diet Patient Data-Allergies,Ht & Wt Patient Allergies: Coded Allergies: Penicillins (Verified Allergy, Unknown, Rash, 01/20/22) codeine (Verified Allergy, Unknown, 01/20/22) fenofibrate (Verified Allergy, Unknown, 01/20/22) fish oil (Verified Allergy, Unknown, 01/20/22) niacin (Verified Allergy, Unknown, 01/20/22) Height (Feet): 5 Height (Inches): 6.00 Weight (Pounds): 311 Weight (Ounces): 0.0 Home Health Need/Face to Face Date of Face to Face: Jan 20, 2022 Clinical Findings: Instability, Muscle weakness, Pain with ambulation, Unsteady gait I have seen Pt [id number]: Yes Discharged To: Home Diagnosis/Conditions: right total knee arthroplasty Patient is Homebound due to: Marcos fall risk due to instabilty, Muscle weakness, Pain w/ambulation Homebound Status Due to the above stated illness, injury or surgical procedure (medical condition or diagnosis) and associated clinical findings, the patient is homebound because of his/her inability to leave home except with aid of a supportive device and/or person AND leaving the home requires a considerable and taxing effort or is medically contraindicated. Pt req the following assistanc: [facility] Home Health Nursing Orders Home Health Services Order: Physical Therapy-Evaluate & Treat DC right knee ana lilia and apply steri strips 02/03/22 Home Health Infusion Therapy Line Start Date: Jan 20, 2022 Therapy Orders Therapy Orders: Physical Therapy, PT to assess for OT Therapy Specific Orders: Eval assistive deivces, Teach enviro modifications/safety, Gait training, Increase strength/endurance, Provider maintenance therapy, Restore ROM Certify Stmt I certify that this patient is under my care and that I, a nurse practitioner or a physician; a assistant finance manager working with me, had a face to face encounter that - meets the physician face to face encounter requirements with this patient as dated. TEVIN GILLIAM MD Jan 20, 2022 07:37
[2022-01-20] MEDS ORDERED: INTRA-ARTICULAR IU ONE ×5 (07:45)
[2022-01-20] MEDS ORDERED: proPOfol 200 MG/20 ML (DIPRIVAN) VIAL IV ONE ×2 (07:51→08:05)
[2022-01-20] MEDS ORDERED: ONDANSETRON 4 MG/2 ML (SDV) Z0FRAN ONE (07:51)
[2022-01-20] MEDS ORDERED: SEVOFLURANE (ULTANE) 15 ML INHAL SOLN ONE (07:51)
[2022-01-20] MEDS ORDERED: SUCCINYLCHOLINE INJ 100 MG/5 ML SYR/VIAL ONE (07:51)
[2022-01-20] MEDS ORDERED: DESFLURANE (SUPRANE) 15 ML INHAL SOLN ONE (09:21)
[2022-01-20] MEDS ORDERED: morphine INJ 10 MG/ML 1ML (SYR OR VIAL) ONE (09:40)
[2022-01-20] MEDS ORDERED: morphine INJ 10 MG/ML 1ML (SYR OR VIAL) IVP ONE (09:45)
[2022-01-20] MEDS ORDERED: PROMETHAZINE INJ 25 MG/ML (PHENERGAN) AMP IVP ONE (09:45)
[2022-01-20] MEDS ORDERED: HYDROmorphone 2 MG/ML VIAL (DILAUDID) IV ONE (09:45)
--- NOTE | 2022-01-20 10:05 | Diagnostic Imaging Report ---
INDICATION: Right knee surgery. Time of Exam: 9:37 AM 2 views right knee gastric postop changes of total knee arthroplasty. Prosthetic elements in good position without fracture or loosening. There are overlying skin ana lilia noted. IMPRESSION: Satisfactory postop appearance to the right knee. Dictated by: Dictated on workstation # [id number]
--- NOTE | 2022-01-20 10:12 | Progress Note ---
Standard Progress Note Progress Notes/Assess & Plan Date Seen by a Provider: Jan 20, 2022 Time Seen by a Provider: 09:35 Progress/Assessment & Plan post op check no complaints radiographs--HW well positioned without fracture RLE--sym DP pulse with brisk cap refill intact DF and PF of toes and ankle sensation intact to light touch throughout s/p RTKA mobilize as able TEVIN GILLIAM MD Jan 20, 2022 10:12
[2022-01-20] MEDS: SENNA W/DOCUSATE (SENOKOT S) TABLET PO SCH ×2 (10:49→20:00)
[2022-01-20] MEDS: NS IV 1000 ML 1,000 ML IV SCH (12:06)
--- NOTE | 2022-01-20 14:07 | Physical Therapy Evaluation ---
PT Evaluation-General Medical Diagnosis Admission Date Jan 20, 2022 at 06:02 Medical Diagnosis: right TKA Onset Date: Jan 20, 2022 Therapy Diagnosis Therapy Diagnosis: impaired mobility, ROM Height/Weight Height (Feet): 5 Height (Inches): 6.00 Weight (Pounds): 311 Weight (Ounces): 0.0 Referral Physician: Tripp Reason for Referral: Evaluation/Treatment Medical History Additional Medical History PAST MEDICAL HISTORY: Anxiety disorder, back pain, constipation, coronary artery disease, reflux, hyperlipidemia, hypertension, osteoarthritis, sleep apnea, gout, alcoholism, depression and PTSD, prediabetes. PAST SURGICAL HISTORY: Colonoscopy, right knee arthroscopy. Reviewed History: Yes Social History Current Living Status: Spouse Entry Into Home: Stairs Without Railing PT Steps Into Home: 2 Prior Prior Level of Function SCALE: Activities may be completed with or without assistive devices. 0-Iqvrvkmuho-ppgdoaw completes the activity by him/herself with no assistance from a helper. 5-Set-up or Clean-up Assistance-helper sets up or cleans up; patient completes activity. [place] assists only prior to or following the activity. 4-Supervision or Touching Assistance-helper provides verbal cues and/or touching/steadying and/or contact guard assistance as patient completes activity. Assistance may be provided throughout the activity or intermittently. 3-Partial/Moderate Assistance-helper does LESS THAN HALF the effort. [place] lifts, holds or supports trunk or limbs, but provides less than half the effort. 2-Substantial/Maximal Assistance-helper does MORE THAN HALF the effort. [place] lifts or holds trunk or limbs and provides more than half the effort. 8-Swzzsxrxj-sbhgtb does ALL the effort. Patient does none of the effort to complete the activity. Or, the assistance of 2 or more helpers is required for the patient to complete the activity. If activity was not attempted, code reason: 7-Patient Refused. 9-Not Applicable-not attempted and the patient did not perform the activity before the current illness, exacerbation or injury. 10-Not Attempted due to Environmental Limitations-(lack of equipment, weather restraints, etc.). 88-Not Attempted due to Medical Conditions or Safety Concerns. Bed Mobility: 6 Transfers (B,C,W/C): 6 Gait: 6 Stairs: 6 Indoor Mobility (Ambulation): Independent Stairs: Independent Prior Devices Use: Other-see list below (SPC) PT Evaluation-Current Subjective Patient in bed pre tx, agrees to PT, has 5/10 pain in right knee. Pt/Family Goals to be independent at home Objective Patient Orientation: Person, Place, Situation Attachments: SCD's, Polar Pack, IV ROM/Strength ROM Lower Extremities right knee extension +10 degrees, flexion 70 degrees Sensory Vision: Functional Hearing: Functional Sensation Right Lower Extremit: Intact Sensation Left Lower Extremity: Intact Transfers Roll Left to Right (QC): 6 Sit to Lying (QC): 3 Lying to Sitting/Side of Bed(Q: 3 Sit to Stand (QC): 4 Min assist for supine <-> sit, CGA for sit to stand. Patient was able to take several sidesteps to the head of the bed before sitting down. Patient was a little retropulsive after standing and a little light headed Balance Sitting Static: Normal Sitting Dynamic: Normal Standing Static: Fair Standing Dynamic: Fair Treatment RLE total knee protocol x10 (AP, QS, HS, SAQ, SLR) Assessment/Needs Patient in bed post tx with nurse call, phone, tray, all needs met. Patient has impaired mobility, strength, endurance, ROM. Min assist for supine to sit. Rehab Potential: Fair PT Ethylene Plant Helper Goals Skilled Nursing Goals PT Ethylene Plant Helper Goals Time Frame: Jan 27, 2022 Roll Left & Right (QC): 6 Sit to Lying (QC): 6 Lying-Sitting on Side/Bed(QC): 6 Sit to Stand (QC): 4 (SBA) Chair/Iaz-mz-Vrzyl Xfer(QC): 4 (SBA) Walk 10 feet (QC): 4 (SBA) Walk 50ft with 2 Turns (QC): 4 (SBA) Walk 150 ft (QC): 4 1 Step (curb) (QC): 4 (SBA) 4 Steps (QC): 4 (SBA) PT Plan Problem List Problem List: Activity Tolerance, Functional Strength, Safety, Balance, Gait, Transfer, Bed Mobility, ROM Treatment/Plan Treatment Plan: Continue Plan of Care Treatment Plan: Bed Mobility, Education, Functional Activity Ankita, Functional Strength, Gait, Safety, Therapeutic Exercise, Transfers Treatment Duration: Jan 27, 2022 Frequency: 11 times per week Estimated Hrs Per Day: .25 hour per day Patient and/or Family Agrees t: Yes Safety Risks/Education Patient Education: Gait Training, Transfer Techniques, Correct Positioning, Safety Issues Teaching Recipient: Patient Teaching Methods: Demonstration, Discussion Response to Teaching: Reinforcement Needed Discharge Recommendations Plan Patient will perform bed mobility and transfer training, balance and endurance training, functional strengthening, stair training, gait training, and education, to improve functional mobility and independence at home. Therapy Discharge Recommendati: Home & Family, Post Acute PT Time/GCodes Time In: 1308 Time Out: 1324 Total Billed Treatment Time: 16 Total Billed Treatment 1 visit ADINA Selby' ONELIA SOLOMON PT Jan 20, 2022 14:06
--- NOTE | 2022-01-20 14:23 | OPERATIVE REPORT ---
DATE OF SERVICE: 01/20/2022 PREOPERATIVE DIAGNOSIS: Right knee primary osteoarthritis. POSTOPERATIVE DIAGNOSIS: Right knee primary osteoarthritis. PROCEDURE: Right total knee arthroplasty. SURGEON: Mickey Fischer MD PESTICIDE CHEMIST: Basil Almaguer, who assisted throughout the procedure and closed the incision. ANESTHESIA: General endotracheal plus femoral nerve block by Naseem Molina CRNA. TOURNIQUET TIME: Approximately 73 minutes at 325 mmHg. ESTIMATED BLOOD LOSS: Minimal. DRAINS: None. COMPLICATIONS: None. POSTOPERATIVE PLAN: Routine protocol. The patient was transferred to the recovery room awake and in stable condition. STATEMENT OF MEDICAL NECESSITY: The patient is a 66-year-old gentleman with longstanding progressive right knee pain. He has undergone treatment with injections, anti-inflammatories and rest. Radiographs revealed severe medial and patellofemoral arthrosis. Due to functional impairment and failure to improve with conservative measures, the patient elected to proceed with surgical intervention. He knew due to his large size that he was at higher risk for perioperative and long-term complications. DESCRIPTION OF PROCEDURE: After risks and benefits of procedure were discussed and questions were answered, informed consent was signed and placed on chart, the operative site was confirmed in the preoperative holding area initialed by the surgeon. The patient was then transferred to the operating room and after adequate levels of general endotracheal anesthetic were obtained, a timeout was called, confirming the operative site. The right lower extremity was prepped and draped in the usual sterile fashion with the leg elevated and the knee flexed, and tourniquet inflated to 325 mmHg. A standard anterior approach was utilized. Hemostasis was obtained with cautery. A medial parapatellar arthrotomy was used, leaving a 2 cm cuff on the patella for later reattachment. A portion of the fat pad was resected. Subperiosteal release was carefully performed on the proximal medial tibia being careful to stay on the bony surface. The ACL was resected. Intramedullary guide was passed into the femoral canal. The distal cut was made. The femur sized to a size 5, the 5 cutting block was placed parallel to the epicondylar axis and cuts were made from posterior to anterior. Subperiosteal release was then carefully performed on posterior, distal femur being careful to stay on the bony surface. Intramedullary guide was then passed into the tibia. The drop cameron transected, the intermalleolar axis and cut was made. The 6 baseplate was placed and prepared with the drill and keel punch. The femoral trial was placed, and trochlear cut was made. The patella was prepared by resecting 10 mm off the undersurface. Peg guide was placed, and peg holes were drilled. The 32 button was placed. Knee was taken through range of motion. Full extension was easily obtained, 120 degrees of flexion was obtained; however, the patient had a large pannus posteriorly, which blocked any further flexion. There was no anterior/posterior or medial/lateral laxity in flexion or extension. The patella tracked well. Trials were removed. The joint was irrigated with pulse lavage. The periarticular block was placed in the posterior capsule, medial and lateral retinaculum, extensor mechanism as well as subcutaneous tissues. The bony surfaces were irrigated and dried. The tibial baseplate was cemented into position. Excessive cement was removed, the superior surface was irrigated and dried. The polyethylene insert was placed. The distal femur was irrigated and dried and the femoral prosthesis was cemented into position. The knee was brought in full extension until cement had cured. Extra cement was removed while it was curing, the undersurface of patella was irrigated and dried. The patellar button was cemented into position. Excessive cement was removed. Once cement had cured, the knee was taken through range of motion. Full extension was easily obtained 120 degrees of flexion with gravity was easily obtained. There is no anterior/posterior or medial/lateral laxity in flexion or extension. The joint was further irrigated with pulse lavage. The arthrotomy was closed with #2 [place] in imdino-sa-qpmzn interrupted fashion. The wound was further irrigated, 0 Vicryl was used for deep subcutaneous tissue, 2-0 Vicryl for the superficial subcutaneous tissue, ana lilia used on the skin. A soft dressing was applied. Tourniquet was deflated. The patient was transferred to the recovery room awake and in stable condition. MATERIALS: Microport cemented size 5 femur, cemented size 6 tibia with 10 mm insert and cemented size 32 patellar button. Job ID: [id number] DocumentID: [id number] Dictated Date: 01/20/2022 09:31:18 Laborer Livestock Date: 01/20/2022 14:23:11 Dictated By: MICKEY FISCHER MD
[2022-01-20] MEDS: CEFUROXIME INJECTION 750 MG in NS (IVPB) 50 ML IV SCH ×2 (14:50→23:15)
[2022-01-20] MEDS: oxyCODONE/APAP 5/325MG (PERCOCET 5) TABLET PO PRN ×2 (14:51→19:59)
[2022-01-21] VITALS (7 sets, daily range): BP systolic 145–184; BP diastolic 67–80
[2022-01-21] MEDS: NS IV 1000 ML 1,000 ML IV SCH ×3 (02:58→14:50)
[2022-01-21] MEDS: oxyCODONE/APAP 5/325MG (PERCOCET 5) TABLET PO PRN ×3 (03:18→14:52)
[2022-01-21 06:45] LABS: HEMOGLOBIN 9.8 g/dL (13.3-17.7)
--- NOTE | 2022-01-21 08:07 | Progress Note ---
Standard Progress Note Progress Notes/Assess & Plan Date Seen by a Provider: Jan 21, 2022 Time Seen by a Provider: 08:06 Progress/Assessment & Plan post op check no complaints radiographs--HW well positioned without fracture RLE--sym DP pulse with brisk cap refill intact DF and PF of toes and ankle sensation intact to light touch throughout s/p RTKA mobilize as able Final Diagnosis no complaints Vital Signs Date Time Temp Pulse Resp B/P (MAP) Pulse Ox O2 Delivery O2 Flow Rate FiO2 01/21/22 07:24 36.2 91 20 148/71 (96) 94 Nasal Cannula 2.00 01/21/22 04:00 37.1 95 20 150/80 (103) 97 Nasal Cannula 3.00 01/20/22 23:28 36.8 93 20 147/83 (104) 97 Nasal Cannula 3.00 01/20/22 21:00 Room Air 01/20/22 19:45 37.6 99 20 174/75 (108) 92 Room Air 01/20/22 15:50 37.6 97 18 151/70 (97) 93 Room Air 01/20/22 14:44 Room Air 01/20/22 11:47 36.6 89 20 158/67 (97) 91 Room Air 01/20/22 10:55 36.9 94 20 167/84 (111) 93 Nasal Cannula 3.00 01/20/22 10:32 Nasal Cannula 2.00 01/20/22 10:20 OxyMask 2.00 01/20/22 10:20 37.3 14 162/69 (100) 93 Nasal Cannula 2.00 01/20/22 10:10 16 166/81 (109) 93 OxyMask 2.00 01/20/22 10:00 16 164/97 (119) 94 OxyMask 2.00 01/20/22 10:00 OxyMask 3.00 01/20/22 09:50 16 128/76 (93) 96 OxyMask 4.00 01/20/22 09:43 OxyMask 6.00 01/20/22 09:40 20 190/105 (133) 99 OxyMask 6.00 01/20/22 09:30 24 223/100 (141) 99 OxyMask 8.00 01/20/22 09:28 OxyMask 8.00 01/20/22 09:28 37.0 12 193/117 (142) 93 OxyMask 8.00 01/20/22 09:00 96 Room Air I & O 01/21/22 07:00 Intake Total 3980 ml Output Total 700 ml Balance 3280 ml Laboratory Tests Test 01/21/22 05:57 Range/Units Hemoglobin 9.8 L 13.3-17.7 g/dL Hematocrit 30 L 40-54 % RLE--NVI no calf tenderness able to fire quad s/p RTKA PT/OT TEVIN GILLIAM MD Jan 21, 2022 08:07
[2022-01-21] MEDS ORDERED: METF-865 PO (08:11)
[2022-01-21] MEDS: LORATADINE (CLARITIN) 10 MG TAB PO SCH (08:42)
[2022-01-21] MEDS: PREGABALIN 75 MG (LYRICA) CAP PO SCH ×2 (08:43→20:08)
[2022-01-21] MEDS: SENNA W/DOCUSATE (SENOKOT S) TABLET PO SCH ×2 (08:44→20:08)
[2022-01-21] MEDS: lisINopril 10 MG (PRINIVIL) TABLET PO SCH (08:44)
[2022-01-21] MEDS ORDERED: RT-ALBUTEROL/IPRATROPIUM 3 ML (DUONEB) VIAL INH PRN (08:45)
[2022-01-21] MEDS ORDERED: RT-ALBUTEROL HFA 8.5 GM INHALER IH PRN (08:45)
[2022-01-21] MEDS: ALLOPURINOL 300 MG (ZYLOPRIM) TAB PO SCH (08:46)
[2022-01-21] MEDS: PANTOPRAZOLE 20 MG TABLET (PROTONIX) PO SCH (08:51)
[2022-01-21] MEDS: FLUTICASONE NASAL SPRAY (FLONASE) 16 GM BTL NS SCH (08:52)
[2022-01-21] MEDS: ENOXAPARIN INJECTION 30 MG/0.3 ML SYR SC SCH ×2 (08:52→20:09)
[2022-01-21] MEDS: ASPIRIN E.C. 81 MG (ECOTRIN) TAB PO SCH (08:52)
[2022-01-21] MEDS ORDERED: SERTRALINE 100 MG (ZOLOFT) TAB PO SCH ×2 (09:00→21:00)
[2022-01-21] MEDS ORDERED: OMEPRAZOLE 20 MG (PriLOSEC) CAP NON-FORMULARY PO SCH (09:00)
[2022-01-21] MEDS ORDERED: CETIRIZINE HCL (ZYRTEC) 10 MG TAB PO SCH (09:00)
[2022-01-21] MEDS ORDERED: NON-FORMULARY MEDICATION 1 EA EA (Prazosin HCl 2 MG) PO SCH (09:00)
[2022-01-21] MEDS ORDERED: traZODone 150 MG (DESYREL) TABLET PO SCH ×2 (09:00→21:00)
--- NOTE | 2022-01-21 10:06 | Physical Therapy Daily Note ---
PT Daily Note-Current Subjective Patient agrees to PT. Pain Section J - Health Conditions 1. Rarely or not at all 2. Occasionally 3. Frequently 4. Almost constantly 8. Unable to answer Pain Effect on Sleep: 2 Pain Interference with Therapy: 2 Pain Interference w/Day-to-Day: 2 Mental Status Patient Orientation: Person, Time, Situation Attachments: Polar Pack, IV Transfers SCALE: Activities may be completed with or without assistive devices. 7-Ihtonrtutf-pwcbdos completes the activity by him/herself with no assistance from a helper. 5-Set-up or Clean-up Assistance-helper sets up or cleans up; patient completes activity. [place] assists only prior to or following the activity. 4-Supervision or Touching Assistance-helper provides verbal cues and/or touching/steadying and/or contact guard assistance as patient completes activity. Assistance may be provided throughout the activity or intermittently. 3-Partial/Moderate Assistance-helper does LESS THAN HALF the effort. [place] lifts, holds or supports trunk or limbs, but provides less than half the effort. 2-Substantial/Maximal Assistance-helper does MORE THAN HALF the effort. [place] lifts or holds trunk or limbs and provides more than half the effort. 2-Fliwziruc-ivdzru does ALL the effort. Patient does none of the effort to complete the activity. Or, the assistance of 2 or more helpers is required for the patient to complete the activity. If activity was not attempted, code reason: 7-Patient Refused. 9-Not Applicable-not attempted and the patient did not perform the activity before the current illness, exacerbation or injury. 10-Not Attempted due to Environmental Limitations-(lack of equipment, weather restraints, etc.). 88-Not Attempted due to Medical Conditions or Safety Concerns. Lying to Sitting/Side of Bed(Q: 4 Sit to Stand (QC): 4 Chair/Oos-us-Bjpvf Xfer(QC): 3 Gait Training Distance: 30' Walk 10 feet (QC): 3 Walk 50 ft with 2 Turns(QC): 88 Walk 150 ft (QC): 88 Gait Assistive Device: FWW slow, antalgic gait sequence Exercises Supine Ex: Ankle pumps, Quad Set, Heel Slides, Straight leg raise Supine Reps: 15 Seated Therapy Exercises: Long arc quads Seated Reps: 15 Assessment Patient had a mild episode of dizziness during ambulation. Patient require RN to get the recliner to sit. Patient tolerates minimal activity and is up in recliner with needs met. PT Detention Goals Detention Goals PT Detention Goals Time Frame: Jan 27, 2022 Roll Left & Right (QC): 6 Sit to Lying (QC): 6 Lying-Sitting on Side/Bed(QC): 6 Sit to Stand (QC): 4 (SBA) Chair/Wye-ci-Rgaju Xfer(QC): 4 (SBA) Walk 10 feet (QC): 4 (SBA) Walk 50ft with 2 Turns (QC): 4 (SBA) Walk 150 ft (QC): 4 1 Step (curb) (QC): 4 (SBA) 4 Steps (QC): 4 (SBA) PT Plan Treatment/Plan Treatment Plan: Continue Plan of Care Treatment Plan: Bed Mobility, Education, Functional Activity Ankita, Functional Strength, Gait, Safety, Therapeutic Exercise, Transfers Treatment Duration: Jan 27, 2022 Frequency: 11 times per week Estimated Hrs Per Day: .25 hour per day Patient and/or Family Agrees t: Yes Time/GCodes Time In: 741 Time Out: 806 Total Billed Treatment Time: 25 Total Billed Treatment 1 visit GT 13 min EX 12 min LUCIA HIGH PT Jan 21, 2022 10:06
[2022-01-21] MEDS ORDERED: FLU QUADRIvalent (6 months+) 60 mcg/0.5 ml 2022-23 (Fluzone) IM ONE (10:30)
--- NOTE | 2022-01-21 10:50 | Consultation ---
HPI History of Present Illness: 66 yo male admitted after right knee replacement on 01/20/22. He states his leg hurts and he feels like he is going to fall, but is working with PT. He denies fever. Source: patient Date seen by provider: Jan 21, 2022 Time Seen by Provider: 10:45 Attending Physician [facility] PCP Admitting Physician: Mickey Fischer MD Attending Physician: Mickey Fischer MD Consult Date of Admission Jan 20, 2022 at 06:02 Home Medications Home Medications Reviewed patient Home Medication Reconciliation performed by pharmacy medication reconciliations patient services technician and/or nursing. Patients Allergies have been reviewed. Allergies Coded Allergies: Penicillins (Verified Allergy, Unknown, Rash, 01/20/22) codeine (Verified Allergy, Unknown, pt rec'd morphine, hydromorphone, hydrocodone in past, 01/20/22) fenofibrate (Verified Allergy, Unknown, 01/20/22) fish oil (Verified Allergy, Unknown, 01/20/22) niacin (Verified Allergy, Unknown, 01/20/22) RPK-Qfzphn-Zrrgqg Hx Patient Social History Smoking Status: Former Smoker (20 pack year history, quit around 2001) 2nd Hand Smoke Exposure: Yes Recent Hopitalizations: No Alcohol Use?: Yes (1-2 beers most days) Have you traveled recently?: No Immunizations Up To Date Tetanus Booster (TDap): Unknown Influenza Vaccine Up-to-Date: No; Not Current First/Initial COVID19 Vaccinat: None Past Medical History Past medical history 1. Hypertension 2. Hyperlipidemia 3. Alcoholism 4. Dyspepsia 5. Chronic back pain 6. DMII 7. Depression/Anxiety 8. COPD 9. Irritable bowel syndrome SurgHx Right knee arthroscopy Right TKA Cardiac catheterization (no stenting) Family Medical History Other Significan Family Hx: Pt reports family history unknown Review of Systems ([facility]) Constitutional: No fever EENTM: blurred vision (when looking at apps on phone) Respiratory: No short of breath Cardiovascular: No chest pain, No palpitations Gastrointestinal: No constipation, No diarrhea, No nausea, No vomiting Genitourinary: No dysuria Musculoskeletal: joint pain Skin: No rash Reviewed Test Results Reviewed Test Results Lab Laboratory Tests Test 01/21/22 05:57 Range/Units Hemoglobin 9.8 L 13.3-17.7 g/dL Hematocrit 30 L 40-54 % Physical Exam-([facility]) Physical Exam Vital Signs VS - Last 72 Hours, by Label 01/20/22 01/20/22 01/20/22 01/20/22 06:25 06:30 09:00 09:28 Temp 37.0 37.0 Pulse 86 Resp 22 12 B/P (MAP) 161/84 (109) 193/117 (142) Pulse Ox 96 96 96 93 O2 Delivery Room Air Room Air Room Air OxyMask O2 Flow Rate 8.00 01/20/22 01/20/22 01/20/22 01/20/22 09:28 09:30 09:40 09:43 Resp 24 20 B/P (MAP) 223/100 (141) 190/105 (133) Pulse Ox 99 99 O2 Delivery OxyMask OxyMask OxyMask OxyMask O2 Flow Rate 8.00 8.00 6.00 6.00 01/20/22 01/20/22 01/20/22 01/20/22 09:50 10:00 10:00 10:10 Resp 16 16 16 B/P (MAP) 128/76 (93) 164/97 (119) 166/81 (109) Pulse Ox 96 94 93 O2 Delivery OxyMask OxyMask OxyMask OxyMask O2 Flow Rate 4.00 3.00 2.00 2.00 01/20/22 01/20/22 01/20/22 01/20/22 10:20 10:20 10:32 10:55 Temp 37.3 36.9 Pulse 94 Resp 14 20 B/P (MAP) 162/69 (100) 167/84 (111) Pulse Ox 93 93 O2 Delivery Nasal Cannula OxyMask Nasal Cannula Nasal Cannula O2 Flow Rate 2.00 2.00 2.00 3.00 01/20/22 01/20/22 01/20/22 01/20/22 11:47 14:44 15:50 19:45 Temp 36.6 37.6 37.6 Pulse 89 97 99 Resp 20 18 20 B/P (MAP) 158/67 (97) 151/70 (97) 174/75 (108) Pulse Ox 91 93 92 O2 Delivery Room Air Room Air Room Air Room Air 01/20/22 01/20/22 01/21/22 01/21/22 21:00 23:28 04:00 07:24 Temp 36.8 37.1 36.2 Pulse 93 95 91 Resp 20 20 20 B/P (MAP) 147/83 (104) 150/80 (103) 148/71 (96) Pulse Ox 97 97 94 O2 Delivery Room Air Nasal Cannula Nasal Cannula Nasal Cannula O2 Flow Rate 3.00 3.00 2.00 01/21/22 08:34 Temp 36.2 Pulse 91 Pulse Ox 94 FiO2 2 Capillary Refill : General Appearance: no apparent distress, obese Respiratory: lungs clear, normal breath sounds Cardiovascular: regular rate, rhythm, no murmur Gastrointestinal: normal bowel sounds, non tender Extremities: other (legs wrapped in JERO bandage, no palpable edema) Neurologic/Psychiatric: alert, normal mood/affect Assessment/Plan Assessment/Plan (1) HTN (hypertension) Status: Acute Assessment & Plan: Resume home meds Qualifiers: Qualified Codes: I10 - Essential (primary) hypertension (2) Coronary artery disease Status: Chronic Assessment & Plan: Continue aspirin. Qualifiers: Qualified Codes: I25.10 - Atherosclerotic heart disease of [place] coronary artery without angina pectoris (3) Prediabetes Status: Chronic Assessment & Plan: On exenatide, but reports prediabetes, review of chart does show that in clinic the highest A1c recorded several years ago was 6.4. Diabetic diet, sliding scale insulin. (4) Gout Status: Chronic Assessment & Plan: Resume home allopurinol (5) Anemia Status: Chronic Assessment & Plan: Acute on chronic, likely due to surgery, baseline anemia (likely of chronic disease) noted in clinic records with normal iron studies and negative colonoscopy in 2019 and negative hemoccult within this year. Qualifiers: Qualified Codes: D63.8 - Anemia in other chronic diseases classified elsewhere (6) KIRK (obstructive sleep apnea) Status: Chronic Assessment & Plan: Home CPAP (7) Generalized anxiety disorder Status: Chronic Assessment & Plan: Resume home meds (8) Hyperlipidemia Status: Chronic (9) PTSD (post-traumatic stress disorder) Status: Chronic (10) Irritable bowel syndrome Status: Chronic Assessment & Plan: Resume home meds Qualifiers: Qualified Codes: K58.1 - Irritable bowel syndrome with constipation (11) Chronic GERD Status: Chronic Assessment & Plan: PPI (12) Morbid obesity Status: Chronic (13) Unvaccinated for covid-19 Status: JOVON Wharton MD Jan 21, 2022 10:50
--- NOTE | 2022-01-21 11:26 | Occupational Therapy Eval ---
OT Evaluation-General/PLF Medical Diagnosis Admission Date Jan 20, 2022 at 06:02 Medical Diagnosis: right TKA Onset Date: Jan 20, 2022 Therapy Diagnosis Therapy Diagnosis: reduced adl status Height/Weight Height (Feet): 5 Height (Inches): 6.00 Weight (Pounds): 311 Weight (Ounces): 0.0 Precautions Precautions/Isolations: Fall Prevention, Standard Precautions Weight Bear Status Weight Bearing Restriction: Weight Bearing/Tolerated Location Restriction: R LE Referral Physician: Tripp Referral Reason: Evaluation/Treatment Medical History Current History s/p R TKA, post op day 1. Pt often needing extra time to respond/process or he will look over at his to respond. Pt lives with his in a single story home. He reports independence with adls except footwear which his had to help with. His completes all iadls. Pt was using a cane prior to surgery. Reviewed History: Yes Social History Home: Single Level Current Living Status: Spouse Entry Into Home: Stairs Without Railing Steps Into Home: 2 ADL-Prior Level of Function SCALE: Activities may be completed with or without assistive devices. 2-Bzfzhtnqnp-hhdjnqs completes the activity by him/herself with no assistance from a helper. 5-Set-up or Clean-up Assistance-helper sets up or cleans up; patient completes activity. [place] assists only prior to or following the activity. 4-Supervision or Touching Assistance-helper provides verbal cues and/or touching/steadying and/or contact guard assistance as patient completes activity. Assistance may be provided throughout the activity or intermittently. 3-Partial/Moderate Assistance-helper does LESS THAN HALF the effort. [place] lifts, holds or supports trunk or limbs, but provides less than half the effort. 2-Substantial/Maximal Assistance-helper does MORE THAN HALF the effort. [place] lifts or holds trunk or limbs and provides more than half the effort. 4-Bjuuskwia-vpwpjq does ALL the effort. Patient does none of the effort to complete the activity. Or, the assistance of 2 or more helpers is required for the patient to complete the activity. If activity was not attempted, code reason: 7-Patient Refused. 9-Not Applicable-not attempted and the patient did not perform the activity before the current illness, exacerbation or injury. 10-Not Attempted due to Environmental Limitations-(lack of equipment, weather restraints, etc.). 88-Not Attempted due to Medical Conditions or Safety Concerns. Self Care: Needed Some Help Functional Cognition: Needed Some Help DME/Equipment: Bath Chair, Tub/Shower Drive Self: No OT Current Status Subjective Pt reports 10/10 pain in R knee, RN notified. Appearance Pt left sitting in recliner, all needs within reach, spouse in the room at OT departure. Mental Status/Objective Patient Orientation: Person, Situation Attachments: IV, Oxygen Current Hand Dominance: Right Upper Extremity ROM WFL Upper Extremity Strength 5/5 throughout ADL-Treatment Eating (QC): 6 Oral Hygiene (QC): 5 Lower Body Dressing (QC): 1 (per clinical judgment) On/Off Footwear (QC): 1 Pt sitting in recliner at OT arrival. He reports 10/10 pain and refuses all activities that involve getting out of the chair. Dependent to don bilateral socks, however reports pt needed assistance with task prior to surgery. At this time, anticipate pt would need assistance with threading BLE's into LB clothing as he was unable to reach his knee in sitting secondary to pain with any form of flexion. Per physical therapy note, pt required min-mod a to stand and can be retropulsive. Due to poor balance and retropulsion, pt likely would require assistance with clothing management during tasks such as dressing and toileting. Pt says that he does not like using a walker and would rather use a w/c. Education on safety and continuing to ambulate in order to improve knee ROM, pain tolerance, and strength. Education OT Patient Education: Correct positioning, Modified ADL techniques, Purpose of tx/functional activities, Reviewed precautions, Rehab process, Safety issues Teaching Recipient: Patient, Family Teaching Methods: Discussion Response to Teaching: Reinforcement Needed OT Hat Sizer Goals Hat Sizer Goals Time Frame: Feb 04, 2022 Toileting Hygiene (QC): 4 Shower/Bathe Self (QC): 4 Upper Body Dressing (QC): 4 Lower Body Dressing (QC): 4 On/Off Footwear (QC): 2 1=Demonstrate adherence to instructed precautions during ADL tasks. 2=Patient will verbalize/demonstrate understanding of assistive devices/modifications for ADL. 3=Patient will improve strength/tolerance for activity to enable patient to perform ADL's. OT Education/Plan Problem List/Assessment Assessment: Decreased Activ Tolerance, Decreased Safety Aware, Impaired Cognition, Impaired Funct Balance, Impaired Self-Care Skills Discharge Recommendations Plan/Recommendations: Continue POC Therapy Discharge Recommendati: Post Acute OT Treatment Plan/Plan of Care Treatment,Training & Education: Yes Patient would benefit from OT for education, treatment and training to promote independence in ADL's, mobility, safety and/or upper extremity function for ADL's. Plan of Care: ADL Retraining, Cognitive Retraining, Functional Mobility, Group Exercise/Act as Ind, UE Funct Exercise/Act, W/C Management Training Treatment Duration: Feb 04, 2022 Frequency: 5 times per week Estimated Hrs Per Day: .25 hour per day Rehab Potential: Fair Time/GCodes Start Time: 11:07 Stop Time: 11:20 Total Time Billed (hr/min): 13 Billed Treatment Time 1 visit Manda Billy OT Jan 21, 2022 11:25
[2022-01-21] MEDS: DICYCLOMINE 10 MG (BENTYL) CAP PO SCH ×2 (11:35→17:23)
--- NOTE | 2022-01-21 13:41 | Physical Therapy Daily Note ---
PT Daily Note-Current Subjective Patient agrees to PT. Pain Numeric Pain Scale: 8 Location: Right Location Body Site: Knee Section J - Health Conditions 1. Rarely or not at all 2. Occasionally 3. Frequently 4. Almost constantly 8. Unable to answer Pain Effect on Sleep: 2 Pain Interference with Therapy: 2 Pain Interference w/Day-to-Day: 2 Mental Status Attachments: Oxygen, IV Transfers SCALE: Activities may be completed with or without assistive devices. 1-Lxyennxltw-lmnimwf completes the activity by him/herself with no assistance from a helper. 5-Set-up or Clean-up Assistance-helper sets up or cleans up; patient completes a ctivity. [place] assists only prior to or following the activity. 4-Supervision or Touching Assistance-helper provides verbal cues and/or touching/steadying and/or contact guard assistance as patient completes activity. Assistance may be provided throughout the activity or intermittently. 3-Partial/Moderate Assistance-helper does LESS THAN HALF the effort. [place] lifts, holds or supports trunk or limbs, but provides less than half the effort. 2-Substantial/Maximal Assistance-helper does MORE THAN HALF the effort. [place] lifts or holds trunk or limbs and provides more than half the effort. 7-Ovrstgakv-efosni does ALL the effort. Patient does none of the effort to complete the activity. Or, the assistance of 2 or more helpers is required for the patient to complete the activity. If activity was not attempted, code reason: 7-Patient Refused. 9-Not Applicable-not attempted and the patient did not perform the activity before the current illness, exacerbation or injury. 10-Not Attempted due to Environmental Limitations-(lack of equipment, weather restraints, etc.). 88-Not Attempted due to Medical Conditions or Safety Concerns. Sit to Lying (QC): 6 Lying to Sitting/Side of Bed(Q: 6 Sit to Stand (QC): 4 Gait Training Distance: 175' Walk 10 feet (QC): 4 Walk 50 ft with 2 Turns(QC): 4 Walk 150 ft (QC): 4 Gait Assistive Device: FWW slow, antalgic gait Exercises Supine Ex: Ankle pumps, Quad Set, Heel Slides, Straight leg raise Supine Reps: 15 Seated Therapy Exercises: Long arc quads Seated Reps: 15 Assessment Patient progressing slowly with treatment plan. Patient presents with bilateral JERO wraps due to LUISA hose are too small. PT to increase activity and plan dismissal tomorrow after therapy. 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 Time Frame: Jan 27, 2022 Roll Left & Right (QC): 6 Sit to Lying (QC): 6 Lying-Sitting on Side/Bed(QC): 6 Sit to Stand (QC): 4 (SBA) Chair/Ksj-hv-Kcpgj Xfer(QC): 4 (SBA) Walk 10 feet (QC): 4 (SBA) Walk 50ft with 2 Turns (QC): 4 (SBA) Walk 150 ft (QC): 4 1 Step (curb) (QC): 4 (SBA) 4 Steps (QC): 4 (SBA) PT Plan Treatment/Plan Treatment Plan: Continue Plan of Care Treatment Plan: Bed Mobility, Education, Functional Activity Ankita, Functional Strength, Gait, Safety, Therapeutic Exercise, Transfers Treatment Duration: Jan 27, 2022 Frequency: 11 times per week Estimated Hrs Per Day: .25 hour per day Patient and/or Family Agrees t: Yes Time/GCodes Time In: 1300 Time Out: 1324 Total Billed Treatment Time: 24 Total Billed Treatment 1 visit EX 14 min GT 10 min LUCIA HIGH PT Jan 21, 2022 13:41
--- NOTE | 2022-01-21 13:57 | Anesthesia-General Post-Op ---
General Patient Condition Mental Status/LOC: Same as Preop Cardiovascular: Satisfactory Nausea/Vomiting: Absent Respiratory: Satisfactory Pain: Controlled Complications: Absent Post Op Complications Complications None Follow Up Care/Instructions Patient Instructions None needed. Anesthesia/Patient Condition Patient Condition Patient is doing well, C/O some knee pain which is to be expected, stable vital signs, no apparent adverse anesthesia problems. No complications reported per nursing. RICARDO WHITLEY DO Jan 21, 2022 13:57
[2022-01-21] MEDS: RT-ALBUTEROL/IPRATROPIUM 3 ML (DUONEB) VIAL INH SCH ×3 (15:09→19:25)
[2022-01-21] MEDS: inSUlin ASPART (NovoLOG) 1 UNIT/0.01 ML (CHARGE PER UNIT) SC SCH ×2 (16:38→20:09)
[2022-01-21] MEDS ORDERED: CYCLOBENZAPRINE 10 MG (FLEXERIL) TAB PO SCH (21:00)
[2022-01-21] MEDS ORDERED: NON-FORMULARY MEDICATION 1 EA EA (Simvastatin 40 MG) PO SCH (21:00)
[2022-01-21] MEDS ORDERED: PRAZOSIN HCL 6 MG PO SCH (21:00)
[2022-01-22 04:00] VITALS: BP 141/66
[2022-01-22] MEDS: inSUlin ASPART (NovoLOG) 1 UNIT/0.01 ML (CHARGE PER UNIT) SC SCH (05:38)
[2022-01-22] MEDS: DICYCLOMINE 10 MG (BENTYL) CAP PO SCH (06:11)
[2022-01-22 06:17] LABS: HEMOGLOBIN 9.7 g/dL (13.3-17.7)
[2022-01-22] MEDS: RT-ALBUTEROL/IPRATROPIUM 3 ML (DUONEB) VIAL INH SCH (06:52)
--- NOTE | 2022-01-22 07:07 | Progress Note ---
Standard Progress Note Progress Notes/Assess & Plan Date Seen by a Provider: Jan 22, 2022 Time Seen by a Provider: 07:06 Progress/Assessment & Plan post op check no complaints radiographs--HW well positioned without fracture RLE--sym DP pulse with brisk cap refill intact DF and PF of toes and ankle sensation intact to light touch throughout s/p RTKA mobilize as able Final Diagnosis no complaints Vital Signs Date Time Temp Pulse Resp B/P (MAP) Pulse Ox O2 Delivery O2 Flow Rate FiO2 01/22/22 06:53 96 Nasal Cannula 2.00 01/22/22 04:00 36.4 86 16 141/66 (91) 95 Nasal Cannula 2.00 01/21/22 23:36 37.5 88 22 160/71 (100) 94 Nasal Cannula 2.00 01/21/22 21:45 Nasal Cannula 2.00 01/21/22 19:46 36.1 95 18 184/77 (112) 98 Nasal Cannula 2.00 01/21/22 19:25 95 Nasal Cannula 2.00 01/21/22 15:30 36.9 89 18 145/67 (93) 97 Nasal Cannula 2.00 01/21/22 15:10 95 Nasal Cannula 2.00 01/21/22 11:19 37.6 87 20 172/77 (108) 95 Nasal Cannula 2.00 01/21/22 10:55 95 Nasal Cannula 2.00 01/21/22 08:34 36.2 91 94 2 01/21/22 07:24 36.2 91 20 148/71 (96) 94 Nasal Cannula 2.00 I & O 01/22/22 07:00 Intake Total 2200 ml Output Total 3140 ml Balance -940 ml Laboratory Tests Test 01/21/22 15:45 01/21/22 20:06 01/22/22 05:38 01/22/22 05:51 Range/Units Glucometer 123 H 125 H 142 H 70-110 MG/DL Hemoglobin 9.7 L 13.3-17.7 g/dL Hematocrit 30 L 40-54 % RLE--incision clean and dry no calf tenderness neg Tana's s/p RTKA PT today DC home if safe TEVIN GILLIAM MD Jan 22, 2022 07:07
[2022-01-22] MEDS ORDERED: morphine INJ 4 MG/ML 1 ML (VIAL/SYRINGE) IVP PRN (07:15)
[2022-01-22 07:38] VITALS: BP 174/78
[2022-01-22] MEDS: ASPIRIN E.C. 81 MG (ECOTRIN) TAB PO SCH (08:03)
[2022-01-22] MEDS: PANTOPRAZOLE 20 MG TABLET (PROTONIX) PO SCH (08:03)
[2022-01-22] MEDS: ALLOPURINOL 300 MG (ZYLOPRIM) TAB PO SCH (08:03)
[2022-01-22] MEDS: lisINopril 10 MG (PRINIVIL) TABLET PO SCH (08:03)
[2022-01-22] MEDS: PREGABALIN 75 MG (LYRICA) CAP PO SCH (08:03)
[2022-01-22] MEDS: LORATADINE (CLARITIN) 10 MG TAB PO SCH (08:03)
[2022-01-22] MEDS: SENNA W/DOCUSATE (SENOKOT S) TABLET PO SCH (08:05)
[2022-01-22] MEDS: ENOXAPARIN INJECTION 30 MG/0.3 ML SYR SC SCH (08:05)
[2022-01-22] MEDS: FLUTICASONE NASAL SPRAY (FLONASE) 16 GM BTL NS SCH (08:09)
--- NOTE | 2022-01-22 09:20 | DISCHARGE SUMMARY ---
DATE OF SERVICE: 01/22/2022 DIAGNOSES: 1. Right knee primary osteoarthritis. 2. Anxiety disorder. 3. Constipation. 4. Coronary artery disease. 5. Reflux, hyperlipidemia, hypertension, sleep apnea, gout, alcoholism, depression and PTSD. PROCEDURE: Right total knee arthroplasty. SUMMARY: The patient is a 66-year-old gentleman who underwent a right total knee arthroplasty on the day of admission. Postoperatively, he did well. At time of discharge, his wound was clean and dry, had no calf tenderness. Negative Tana signs. He is tolerating his diet well and tolerating pain with oral pain medication. CONDITION AT DISCHARGE: Good. DISCHARGE DIET: Regular. FOLLOWUP: Followup is in three weeks. ACTIVITIES: Weightbearing as tolerated with a walker. DISCHARGE MEDICATIONS: Home medications with aspirin and Percocet as needed for pain. Job ID: [id number] DocumentID: [id number] Dictated Date: 01/21/2022 08:08:47 Farm Appraiser Date: 01/22/2022 03:55:22 Dictated By: TEVIN GILLIAM MD
--- NOTE | 2022-01-22 10:06 | Physical Therapy Daily Note ---
PT Daily Note-Current Subjective Patient agrees to PT. Spouse present. Education with patient and spouse on HEP issued at preop. Pain Section J - Health Conditions 1. Rarely or not at all 2. Occasionally 3. Frequently 4. Almost constantly 8. Unable to answer Pain Effect on Sleep: 2 Pain Interference with Therapy: 2 Pain Interference w/Day-to-Day: 2 Mental Status Patient Orientation: Normal For Age Transfers SCALE: Activities may be completed with or without assistive devices. 4-Napnprstno-cxuteec completes the activity by him/herself with no assistance from a helper. 5-Set-up or Clean-up Assistance-helper sets up or cleans up; patient completes activity. [place] assists only prior to or following the activity. 4-Supervision or Touching Assistance-helper provides verbal cues and/or touching/steadying and/or contact guard assistance as patient completes activity. Assistance may be provided throughout the activity or intermittently. 3-Partial/Moderate Assistance-helper does LESS THAN HALF the effort. [place] lifts, holds or supports trunk or limbs, but provides less than half the effort. 2-Substantial/Maximal Assistance-helper does MORE THAN HALF the effort. [place] lifts or holds trunk or limbs and provides more than half the effort. 4-Hnoqdacbe-nokljz does ALL the effort. Patient does none of the effort to complete the activity. Or, the assistance of 2 or more helpers is required for the patient to complete the activity. If activity was not attempted, code reason: 7-Patient Refused. 9-Not Applicable-not attempted and the patient did not perform the activity be fore the current illness, exacerbation or injury. 10-Not Attempted due to Environmental Limitations-(lack of equipment, weather restraints, etc.). 88-Not Attempted due to Medical Conditions or Safety Concerns. Lying to Sitting/Side of Bed(Q: 6 Sit to Stand (QC): 6 Chair/Wnm-fl-Nplcb Xfer(QC): 6 Gait Training Distance: 150' Walk 10 feet (QC): 4 Walk 50 ft with 2 Turns(QC): 4 Walk 150 ft (QC): 4 Gait Assistive Device: FWW slow, WBOS, antalgic gait sequence Stair Training 1 Step (curb) (QC): 7 4 Steps (QC): 7 Exercises Supine Ex: Ankle pumps, Quad Set, Heel Slides, Straight leg raise Supine Reps: 15 Seated Therapy Exercises: Long arc quads Seated Reps: 15 Assessment Patient requires time to complete all functional tasks. Patient is adamant to return to home on this date. Educated patient and spouse about safety concerns and right knee ROM with importance of performing exercises and "working through the pain". Both voice understanding. Patient also refused to perform step training with PT. Patient voices he is comfortable with doing it himself. PT again, attempted to educate patient on safety concerns. Patient continued to decline. PT Spray Gun Striper Goals Longterm Goals PT Longterm Goals Time Frame: Jan 27, 2022 Roll Left & Right (QC): 6 Sit to Lying (QC): 6 Lying-Sitting on Side/Bed(QC): 6 Sit to Stand (QC): 4 (SBA) Chair/Kqe-qp-Cmsdx Xfer(QC): 4 (SBA) Walk 10 feet (QC): 4 (SBA) Walk 50ft with 2 Turns (QC): 4 (SBA) Walk 150 ft (QC): 4 1 Step (curb) (QC): 4 (SBA) 4 Steps (QC): 4 (SBA) PT Plan Treatment/Plan Treatment Plan: Discontinue PT Treatment Plan: Bed Mobility, Education, Functional Activity Ankita, Functional Strength, Gait, Safety, Therapeutic Exercise, Transfers Treatment Duration: Jan 27, 2022 Frequency: 11 times per week Estimated Hrs Per Day: .25 hour per day Patient and/or Family Agrees t: Yes Time/GCodes Time In: 835 Time Out: 859 Total Billed Treatment Time: 24 Total Billed Treatment 1 visit EX 13 min GT 11 min LUCIA HIGH PT Jan 22, 2022 10:06
[2022-01-22 12:01] VITALS: BP 174/78
== END 2022-01-22 12:02 | disposition home health service (06) | DRG 470 ==
LOC: CSD 06:02 → SURG 06:03 → 4TH 10:42
PROVIDERS: ADMIT Orthopaedic Surgery; ATTEND Orthopaedic Surgery
PROC: 0SRC0J9 Replacement of Right Knee Joint with Synthetic Substitute, Cemented, Open Approach (ICD-10-PCS; principal; 2022-01-20 08:01)
DX: M17.11 Unilateral primary osteoarthritis, right knee (principal); I25.10 Atherosclerotic heart disease of native coronary artery without angina pectoris; M54.9 Dorsalgia, unspecified; K21.9 Gastro-esophageal reflux disease without esophagitis; E78.5 Hyperlipidemia, unspecified; I10 Essential (primary) hypertension; G47.30 Sleep apnea, unspecified; M10.9 Gout, unspecified; F32.A Depression, unspecified; F43.10 Post-traumatic stress disorder, unspecified; Z87.891 Personal history of nicotine dependence; G89.29 Other chronic pain; E11.9 Type 2 diabetes mellitus without complications; J44.9 Chronic obstructive pulmonary disease, unspecified; K58.9 Irritable bowel syndrome, unspecified; D63.8 Anemia in other chronic diseases classified elsewhere; G47.33 Obstructive sleep apnea (adult) (pediatric); F41.1 Generalized anxiety disorder; E66.01 Morbid (severe) obesity due to excess calories; Z28.310 Unvaccinated for COVID-19; F10.20 Alcohol dependence, uncomplicated
CPT/HCPCS: 36415; 73560; 82947; 85014; 85018; 86850; 86900; 86901; 94640; 94664; 94760